=== PATIENT | female | born 2000 | race Caucasian/White ===

== ENCOUNTER → 2019-04-03 13:34 | Outpatient (BNVA) | payer MEDICAID, SELFPAY | PROVIDERS: Family Provider Nurse Practitioner Family; PCP Nurse Practitioner Family; Visit Provider Nurse Practitioner Family | DX: Z30.41 Encounter for surveillance of contraceptive pills (principal); J98.8 Other specified respiratory disorders | CPT/HCPCS: 81025 ==

== ENCOUNTER → 2019-04-18 11:35 | Outpatient (BNVA) | payer MEDICAID, SELFPAY | PROVIDERS: Family Provider Nurse Practitioner Family; PCP Nurse Practitioner Family; Visit Provider Nurse Practitioner Family | DX: R10.9 Unspecified abdominal pain (principal); R11.10 Vomiting, unspecified; J98.8 Other specified respiratory disorders; R10.813 Right lower quadrant abdominal tenderness; R10.84 Generalized abdominal pain; R11.2 Nausea with vomiting, unspecified; K21.9 Gastro-esophageal reflux disease without esophagitis | CPT/HCPCS: 81003 ==

== ENCOUNTER 2019-05-01 08:40 | Outpatient (CLI) | payer MEDICAID, SELFPAY ==
--- NOTE | 2019-05-01 08:45 | US_ITS ---
WS: [id number] ULTRASOUND ABDOMEN CLINICAL INFORMATION: looking to rule out appendicitis, cholecystitis.... COMPARISON: None. FINDINGS: No evidence of acute appendicitis. No noncompressible bowel in the right lower quadrant. Liver Size: Normal. Craniocaudal length: 15.0 cm. Echogenicity: Normal. Surface nodularity: None. Mass (size and location): None. Bile ducts Intrahepatic ducts: Normal. Common bile duct diameter: 4.5 mm. Gallbladder Normal. Gallstones: None. Gallbladder sludge: None. Gallbladder wall thickening: None. Pericholecystic fluid: None. Sonographic Chacon sign: Absent. Pancreas Normal as visualized. Spleen Splenomegaly: None. Craniocaudal length: 12.3 cm. Right kidney: Normal. Hydronephrosis: None. Size: 9.0 cm x 4.4 cm x 4.0 cm Left kidney: Normal. Hydronephrosis: None. Size: 9.5 cm x 4.5 cm x 4.6 cm. Abdominal aorta and IVC Visualized portions are normal. Ascites: None. US/US abdomen complete* [id number] IMPRESSION: Normal abdominal ultrasound. No evidence of acute appendicitis.
[2019-05-01 09:24] LABS: Basophils # 0.1 10^3/uL (0.0-0.1); Basophils % 0.5 %; Eosinophils # 0.2 10^3/uL (0.0-0.8); Eosinophils % 1.6 %; Hematocrit 43.1 % (37.0-47.0); Hemoglobin 12.8 g/dL (11.5-15.3); Lymphocytes # 1.9 10^3/uL (0.8-4.8); Lymphocytes % 18.9 %; Mean Corpuscular HGB Conc 29.7 g/dL (30.0-36.0); Mean Corpuscular Hemoglobin 23.2 pg (28.0-34.0); Mean Corpuscular Volume 78.1 fL (81-99); Mean Platelet Volume 9.7 fL (7.4-10.4); Monocytes # 0.5 10^3/uL (0.2-0.9); Monocytes % 4.9 %; Neutrophils # 7.4 10^3/uL (1.8-7.7); Neutrophils % 73.8 %; Nucleated Red Blood Cells % 0 %; Platelet Count 295 10^3/cmm (130-400); Red Blood Count 5.52 10^6/uL (4.1-5.3); Red Cell Distribution Width 15.3 % (12.1-15.1)
[2019-05-01 09:44] LABS: Alanine Aminotransferase 12 U/L (0-33); Albumin Level 3.6 g/dL (3.5-5.2); Alkaline Phosphatase 117 IU/L (35-105); Anion Gap 15.3 (5-19); Aspartate Amino Transferase 14 U/L (0-32); Blood Urea Nitrogen 14 mg/dL (6-20); Calcium 9.7 mg/dL (8.5-10.5); Carbon Dioxide 26 mmol/L (22-29); Chloride 99 mmol/L (98-107); Globulin 4.9 g/dL (1.3-4.6); Glomerular Filtration Rate 90.5 mL/min (90-130); Glucose 96 mg/dL (65-115); Potassium 4.3 mmol/L (3.5-5.1); Sodium 136 mmol/L (136-145); Total Bilirubin 0.4 mg/dL (0.15-1.2); Total Protein 8.5 g/dL (6.6-8.7)
== END 2019-05-01 08:41 | disposition home or self-care (01) ==
LOC: RAD 08:42
PROVIDERS: Family Provider Nurse Practitioner Family; PCP Nurse Practitioner Family; Visit Provider Nurse Practitioner Family
DX: R10.813 Right lower quadrant abdominal tenderness (principal); R11.10 Vomiting, unspecified
CPT/HCPCS: 76700; 80053; 85025

== ENCOUNTER 2019-09-10 14:09 | Emergency (ER) | payer MEDICAID, SELFPAY ==
[2019-09-10 14:27] VITALS: BP 126/88; PULSE 72; RESP 18; TEMP 36.8; O2SAT 97; BMI 39.9
--- NOTE | 2019-09-10 14:36 | ED_ITS ---
HPI - URI/Sore Throat General: Chief Complaint: Upper Respiratory Infection Stated Complaint: cough, dizzy, possibly Time Seen by Provider: 09/10/19 14:25 Source: patient Mode of arrival: ambulatory Limitations: no limitations History of Present Illness: HPI Narrative: 19-year-old female who states she has had a cough over the last 5 to 6 days. She states that it is nonproductive in nature. She states she is coughed so much she gets dizzy at times. She denies any fever. Patient states she also has had 2+ test yesterday. She denies any abdominal pain or vaginal bleeding. MD elicited complaint: cough Associated symptoms: Deny abdominal pain, chills, chest pain, diarrhea, fever(s), headache(s), nausea or vomiting Review of Systems Const: Denies: fever(s), chills, body aches or change in appetite Eyes: Denies: blurry vision or eye discomfort ENMT: Denies: throat pain or dental pain Card: Denies: chest pain Resp: Reports: non-productive cough GI: Denies: abdominal pain, nausea, vomiting or diarrhea : Denies: dysuria Musc: Denies: neck pain or back pain Skin/Breast: Denies: rash Neuro: Denies: headache(s) Psych: Denies: depression Dario/Lymph: Denies: easy bruising All/Imm: Denies: urticaria PFSH ED PFSH: Social History Smoking and tobacco status: former smoker Quit status (tobacco): has quit using tobacco Second hand smoke exposure: No Smoking risk assessment/counseling performed?: No Alcohol intake: never Substance/Drug Use: never Lives independently: Yes Housing: House Marital status: Single History of recent travel: No Female Reproductive History: Date of last menstrual period: 08/07/19 Physical Exam Const: COMMON NORMALS: no acute distress, patient oriented x3 and healthy appearing HENMT: COMMON NORMALS: normocephalic and atraumatic HEAD & SCALP: normocephalic and atraumatic Eye: COMMON NORMALS: Equal, round and reactive pupils present and EOMs intact bilaterally PUPIL: Yes Equal, round and reactive pupils present Neck/C-Spine: COMMON NORMALS: full ROM and supple Chest: COMMONS NORMALS: normal inspection of the chest and normal palpation of entire chest wall Resp: COMMON NORMALS: normal respiratory effort, No retractions, No use of accessory muscles and clear to auscultation bilaterally AUSCULTATION: clear to auscultation bilaterally Cardio: COMMON NORMALS: regular rate, regular rhythm and No murmurs present (Cardio) RATE: regular rate RHYTHM: regular rhythm GI: COMMON NORMALS: Normal to inspection, nondistended, normoactive bowel sounds present, Soft to palpation, non-tender and no masses PALPATION: Yes Soft to palpation Extremity: COMMON NORMALS: normal to inspection and full ROM Neuro: COMMON NORMALS: patient oriented x3, moves all extremities and no focal motor deficits Psych: COMMON NORMALS: mental status grossly normal, Normal thought process present and cooperative THOUGHT PROCESS: Normal thought process present Skin: COMMON NORMALS: no rashes or lesions noted and no wounds GENERAL SKIN EXAM: no rashes or lesions noted Course Vital Signs: Vital signs: Vital Signs Temperature 98.2 F 09/10/19 14:27 Pulse Rate 72 09/10/19 14:27 Respiratory Rate 18 09/10/19 14:27 Blood Pressure 126/88 09/10/19 14:27 Pulse Oximetry 97 09/10/19 14:27 MDM - URI/Sore Throat MDM Narrative: Medical decision making narrative: Patient presents here with cough congestion likely bronchitis. Patient is also . She has no related complaints here. Patient's blood pressure and pulse is normal. She has had no bleeding. She is to follow-up with OB in 3 to 5 days and return if worsening. Will place on Keflex. Lab Data: Labs: Lab Results 09/10/19 Range/Units 14:41 HCG, Qual Positive H (Negative) Imaging Data^: CXR: Attestation: I personally reviewed and interpreted this imaging study as follows: My impression: no acute abnormality Discharge Plan Discharge Patient Disposition: Home, Self-Care Clinical Impression: Upper respiratory infection Qualifiers: URI type: unspecified URI Qualified Code(s): J06.9 - Acute upper respiratory infection, unspecified Condition: Stable Prescriptions: New Keflex 500 mg capsule 500 mg PO Q6H 7 Days Qty: 28 RF: 0 No Action famotidine 40 mg tablet 40 mg PO BID 30 Days Qty: 60 RF: 2 promethazine-DM 6.25-15 mg/5 mL syrup 5 - 10 ml PO Q6H PRN (Reason: cough) Qty: 240 RF: 0 albuterol sulfate [ProAir HFA] 90 mcg/actuation HFA aerosol inhaler 2 puff INHALATION Q6H PRN (Reason: shortness of breath or wheezing) Qty: 1 RF: 0 norgestimate-ethinyl estradiol [Tri-Sprintec (28)] 0.18/0.215/0.25 mg-35 mcg (28) tablet 1 tab PO QDAY 30 Days Qty: 30 RF: 11 Discharge Orders: Discharge Order (Routine); Ordered 09/10/19 Ordered By: Stiven Grier Referrals: Raz Jon MD [Physician] - 1-3 days Discharge Diet: Advance as tolerated Discharge Activity: Resume usual activity Patient Instructions: (ED), Upper Respiratory Infection (ED) Coding Level of Care Code ED Camouflage Assembler for Chg Fwd Exam Comprehensive
--- NOTE | 2019-09-10 14:44 | XRR_ITS ---
PROCEDURE INFORMATION: Exam: XR Chest, 1 View Exam date and time: 09/10/2019 2:45 PM Age: 19 years old Clinical indication: Cough TECHNIQUE: Imaging protocol: XR of the chest Views: 1 view. COMPARISON: No relevant prior studies available. FINDINGS: Lungs: Unremarkable. No consolidation. Pleural space: Unremarkable. No pleural effusion. No pneumothorax. Heart/Mediastinum: Unremarkable. No cardiomegaly. Bones/joints: No acute findings. XR/XR chest 1V portable [id number] IMPRESSION: No acute findings.
[2019-09-10 15:01] LABS: HCG Qualitative Urine. Positive (Negative)
[2019-09-10 15:39] VITALS: BP 121/83; PULSE 70; O2SAT 97
--- NOTE | 2019-09-12 10:17 | DCPLANNER ---
costing manager had message to schedule a follow up appointment for patient with [facility]. costing manager called the [facility] clinic, spoke with Khalida, gave clinic patients information. costing manager was told that patients information would be printed and reviewed. Clinic will call patient with appointment information.
== END 2019-09-10 15:41 | disposition home or self-care (01) ==
PROVIDERS: Emergency Provider Emergency Medicine
DX: O99.511 Diseases of the respiratory system complicating pregnancy, first trimester (principal); Z3A.00 Weeks of gestation of pregnancy not specified; Z87.891 Personal history of nicotine dependence
CPT/HCPCS: 12345; 71045; 81025; 99281; 99283

== ENCOUNTER 2020-03-28 22:04 | Outpatient (CLI) | payer MEDICAID, SELFPAY ==
[2020-03-28 22:54] VITALS: TEMP 37.4
[2020-03-28 22:55] VITALS: BP 120/74; PULSE 106; BMI 41.9
== END 2020-03-28 23:21 | disposition home or self-care (01) ==
LOC: OPOB 22:06 → OBGYN 22:21 → OPOB 22:23 → OBGYN 22:24
PROVIDERS: Visit Provider Family Medicine
DX: O26.899 Other specified pregnancy related conditions, unspecified trimester (principal); Z3A.00 Weeks of gestation of pregnancy not specified; R10.9 Unspecified abdominal pain
CPT/HCPCS: 99211

== ENCOUNTER 2020-05-14 12:43 | Inpatient (IN) | payer MEDICAID, SELFPAY ==
[2020-05-14] VITALS (69 sets, daily range): BP systolic 100–148; BP diastolic 54–81; PULSE 81–126; RESP 16–18; TEMP 36.3–36.8; O2SAT 93–100; BMI 44.2
[2020-05-14 10:57] LABS: Nitrazine Paper, PH Negative
[2020-05-14 13:41] LABS: Basophils # 0.1 10^3/uL (0.0-0.1); Basophils % 0.3 %; Eosinophils # 0.1 10^3/uL (0.0-0.8); Eosinophils % 0.4 %; Hematocrit 35.4 % (37.0-47.0); Hemoglobin 10.4 g/dL (11.5-15.3); Lymphocytes # 2.5 10^3/uL (0.8-4.8); Lymphocytes % 14.3 %; Mean Corpuscular HGB Conc 29.4 g/dL (30.0-36.0); Mean Corpuscular Hemoglobin 21.2 pg (28.0-34.0); Mean Corpuscular Volume 72.2 fL (81-99); Mean Platelet Volume 9.9 fL (7.4-10.4); Monocytes # 0.8 10^3/uL (0.2-0.9); Monocytes % 4.4 %; Neutrophils # 13.77 10^3/uL (1.8-7.7); Nucleated Red Blood Cells % 0 %; Platelet Count 328 10^3/cmm (130-400); Red Cell Distribution Width 15.9 % (12.1-15.1); White Blood Count 17.2 10^3/uL (4.0-10.0)
[2020-05-14] MEDS: lactated ringers 1,000 ML 999 ML IV ×3 (15:49→22:50)
--- NOTE | 2020-05-14 17:09 | P.ANESASSM_ITS ---
Pre-Anesthetic Assessment Pre-Anesthetic Assessment: Height/Weight: Height 1.65 m Weight 120.656 kg Temp Pulse Resp BP Pulse Ox 97.3 F L 121 H 18 126/77 100 05/14/20 10:37 05/14/20 17:06 05/14/20 12:47 05/14/20 17:06 05/14/20 17:03 Preop Diagnosis: Labor pain Proposed Procedure: SMITHA Was Beta Aurora taken within 24 hours: N/A Social: Social History: No alcohol and No tobacco Exam: Pre-Anes Outpt Exam: alert, clear to auscultation bilaterally and regular rate & rhythm Airway: Submandibular: WNL Cervical ROM: WNL MP: 2 Dentition: Full History/ROS: No significant history except as noted and No significant complaints Pulmonary: Pulmonary: None reported CV/HEM: CV/HEM: None reported : : None reported Hepatic: Hepatic: None reported GI: GI: None reported Metabolic: Metabolic: None reported Musc/skel: Musc/skel: None reported Neuropsych: Neuropsych: None reported Anesthetic Plan: ASA status: 2 Anesthesia: Anesthesia Evaluation and Regional (specify below) (Labor epidural) Risk of > 500 ml blood loss (7ml/kg in children): No Meds/Allergies Current Medications: Current Medications Generic Name Dose Route Start Last Admin Trade Name Freq PRN Reason Stop Dose Admin Lactated Ringer's 1,000 mls @ 999 m ls/hr 05/14/20 15:35 05/14/20 16:51 Lactated Ringers IV 999 mls/hr .Q1H1M PRN Administration See label comment s PFSH Anesthesia PFSH: Social History Smoking and tobacco status: former smoker Quit status (tobacco): has quit using tobacco Second hand smoke exposure: No Smoking risk assessment/counseling performed?: No Alcohol intake: never Lives independently: Yes Housing: House Marital status: Single History of recent travel: No Female Reproductive History: Date of last menstrual period: 08/07/19 Gra shelby: 2 Data Anesthesia CBC & Chem 7: 05/14/20 13:00 Other Labs: Laboratory Results - last 48 hr 05/14/20 13:00 WBC 17.2 H RBC 4.90 Hgb 10.4 L Hct 35.4 L MCV 72.2 L MCH 21.2 L MCHC 29.4 L RDW 15.9 H Plt Count 328 MPV 9.9 Neut % (Auto) 80.0 Lymph % (Auto) 14.3 [place] % (Auto) 4.4 Eos % (Auto) 0.4 Baso % (Auto) 0.3 Neut # (Auto) 13.77 H Lymph # (Auto) 2.5 [place] # (Auto) 0.8 Eos # (Auto) 0.1 Baso # (Auto) 0.1 Nucleated RBC % (auto) 0 Nucleated RBCs # 0.0 Cardiac Studies: No Data to Display
--- NOTE | 2020-05-14 17:11 | P.ANES_ITS ---
Anesthesia Procedures Procedure/Date: 05/14/20 Epidural: Time Out Performed: Yes Consents Signed: Procedure Consent Consent: requested by attending/covering physician and from patient Lumbar Level: L3-L4 Epidural position: sitting Epidural procedure: sterile prep of area, 1% lidocaine to numb the area, 18 g needle, neg for paresthesia, test d ose given (5cc), 1.5% xylocaine 1:200k epi, 0.2% Ropivacaine bolus ml (5cc and Fentanyl 100 mcg), no systemic response, sterile dressing applied, L.U.D. no apparent complications and 0.2% Ropiavacaine @ mls/hr (13cc/hour)
[2020-05-14] MEDS: dextrose 5%-lactated ringers 1,000 ML 125 ML IV (18:37)
[2020-05-14] MEDS: ondansetron 2 mg/ML SDV 2 mL 4 MG IVP (19:53)
[2020-05-15] VITALS (19 sets, daily range): BP systolic 95–140; BP diastolic 45–69; PULSE 84–120; RESP 16; TEMP 36.1
[2020-05-15] MEDS: lactated ringers 1,000 ML 999 ML IV
[2020-05-15] MEDS: lidocaine 2% INJ 20 mL INJECTION (00:50)
[2020-05-15] MEDS: oxytocin 30 UNIT/500 ML BAG 600 UNIT IV (00:50)
--- NOTE | 2020-05-15 01:25 | P.PCNOB_ITS ---
Delivery Note: Date of delivery: May 15, 2020 this 20-year-old 2 now para 2 female with an EDC of 05/14/2019 had onset of labor early yesterday morning and arrived [facility] with contractions. She was allowed to labor through the day getting epidural yesterday evening. She underwent artificial rupture membranes around 8:40 PM with clear to slightly meconium stained fluid obtained. At that time she was 6 cm dilated. She dilated slowly throughout the evening to complete cervical dilatation but the baby was still pretty high so allowed her to labor down. heart tones were very reassuring. This physician was called and the patient with the baby at approximately +2 station. Upon arrival mom began pushing and slowly brought the baby on down and we delivered by spontaneous vaginal livery healthy, viable female infant at 00 45. Upon delivery the head the mouth and nose were sucti oned at the perineum followed by delivering of the left shoulder anteriorly in the right posterior shoulder. There was no nuchal cord. The was then suctioned again prior to placing the baby on the mother's abdomen. After approximately 1 minute the umbilical cord was clamped and cut by the maternal grandmother. The infant cried well at with Apgars of 8 and 9 at 1 and 5 minutes respectively. weighed 8 pounds 2 ounces. There were no complications. There was a midline second-degree episiotomy with layered surgical closure. Pre-Delivery Course: This patient was followed throughout her by this physician. Maternal blood type was O+ with antibody screen negative. Hepatitis B, hepatitis C, RPR and HIV were negative. Rubella was immune and group B strep was negative as was Covid. Delivery: Spontaneous vaginal delivery. Post-Delivery Status: Patient is doing well at this time and will be followed for routine postdelivery care. A&P Assessment and plan (1) Normal spontaneous vaginal delivery: Presently patient is doing well and will be followed for routine postdelivery care. We will adjust orders as necessary. Status: Acute Coding Level of Care Code Acute Engineering Test Specialist for Teresa Fwsarai Diagnoses Normal spontaneous vaginal delivery O80
[2020-05-15] MEDS: benzocaine-menthol 78 gm Canister 1 SPRAY TOPICAL (06:15)
[2020-05-15] MEDS: lanolin oint 7 gm 1 APPLIC TOPICAL (06:15)
[2020-05-15] MEDS: docusate sodium 100 mg Capsule PO ×2 (08:18→17:16)
[2020-05-15] MEDS: ibuprofen 800 mg tablet PO ×3 (08:18→20:55)
[2020-05-15] MEDS: prenatal vitamin Capsule 1 CAP PO (08:19)
--- NOTE | 2020-05-15 08:24 | PC.NURSE ---
note Baby had fed formula about 06:30. I saw pt about 0715 and baby was asleep. Mom said she still wanted to try . She has since changed her mind and told her nurse she is just going to stay with bottle feeding and does not want to try the any more.
[2020-05-15 15:13] LABS: Hematocrit 28.6 % (37.0-47.0); Hemoglobin 8.3 g/dL (11.5-15.3); Mean Corpuscular Hemoglobin 21.3 pg (28.0-34.0); Mean Corpuscular Volume 73.3 fL (81-99); Mean Platelet Volume 9.5 fL (7.4-10.4); Platelet Count 248 10^3/cmm (130-400); Red Cell Distribution Width 15.9 % (12.1-15.1); White Blood Count 14.7 10^3/uL (4.0-10.0)
[2020-05-16 04:58] VITALS: BP 111/68; PULSE 86
[2020-05-16 07:30] VITALS: RESP 18; TEMP 36.2
[2020-05-16] MEDS: prenatal vitamin Capsule 1 CAP PO (07:57)
[2020-05-16] MEDS: ibuprofen 800 mg tablet PO (07:57)
[2020-05-16] MEDS: docusate sodium 100 mg Capsule PO (07:58)
[2020-05-16 08:00] VITALS: BP 127/58; PULSE 86
--- NOTE | 2020-05-16 09:38 | PM.OBGYDC ---
Discharge Providers BLACK TOP RAKER Date of Admission: 05/14/20 12:43 Date of Discharge: 05/16/20 Attending Provider at Admission: Emmanuel Diaz MD Attending Provider at Discharge: Emmanuel Diaz MD Primary Care Provider: Emmanuel Diaz MD Diagnoses at Discharge Discharge Diagnosis (1) Normal spontaneous vaginal delivery: Status: Acute Reason for Visit Reason for Visit: leaking fluid Hospital Course Hospital Course Patient arrived at [facility] in active labor and delivered by spontaneous vaginal delivery healthy, viable female infant. She has done very well since delivery. She is ambulating well and tolerating a regular diet. Follow-up hemoglobin and hematocrit were mildly low but otherwise normal. She is doing well and is felt to be stable for discharge. Information Peripartum Data: Delivery Method: Vaginal Physical Exam Const: COMMON NORMALS: no acute distress, healthy appearing and well nourished GENERAL APPEARANCE: cooperative and comfortable HENMT: MOUTH: Normal oral and palatal mucosa present Resp: COMMON NORMALS: normal respiratory effort, No retractions, No use of accessory muscles and clear to auscultation bilaterally AUSCULTATION: clear to auscultation bilaterally Cardio: COMMON NORMALS: regular rate and No murmurs present (Cardio) RATE: regular rate GI: COMMON NORMALS: Normal to inspection, nondistended, normoactive bowel sounds present, Soft to palpation and non-tender (Fundus is firm and well below the umbilicus.) PALPATION: Yes Soft to palpation : COMMON NORMALS: Yes no CVA tenderness BLADDER/KIDNEY EXAM: Yes no CVA tenderness Back/Pelvis: COMMON NORMALS: no CVA tenderness and no thoracic nor lumbar tenderness Extremity: COMMON NORMALS: capillary refill normal and no pedal edema Neuro: COMMON NORMALS: no focal motor deficits and no sensory deficits noted Psych: COMMON NORMALS: mental status grossly normal Urinary Catheter Management^: Cooper: Cath Placed During This Visit: yes Reason for Continuing Indwelling Catheter: Acute Urinary Retention or Obstruction Urinary Catheter Date of Insertion: 05/14/20 Urinary Catheter Time of Insertion: 17:35 Discharge Data Data Completed and Pending: Labs from last 24 hours 05/15/20 14:40 WBC 14.7 H RBC 3.90 L Hgb 8.3 L Hct 28.6 L MCV 73.3 L MCH 21.3 L MCHC 29.0 L RDW 15.9 H Plt Count 248 MPV 9.5 Vitals: Last Vital Signs Temp 97.2 F L 05/16/20 07:30 Pulse 86 05/16/20 08:00 Resp 18 05/16/20 07:30 BP 127/58 05/16/20 08:00 Pulse Ox 100 05/14/20 23:50 Discharge Plan Discharge Patient Disposition: Home Condition: Stable Prescriptions: New docusate sodium [DOK] 100 mg Capsule 100 mg PO BID Qty: 60 RF: 2 ibuprofen 800 mg Tablet 800 mg PO TID Qty: 90 RF: 2 Continued Vitamin 27 mg iron- 800 mcg Tablet 1 tab PO DAILY RF: 0 Discharge Orders: Discharge Order (Routine); Ordered 05/16/20 Ordered By: Emmanuel Diaz Referrals: Emmanuel Diaz MD [Primary Care Provider] - 6 Weeks Discharge Diet: Usual diet Discharge Activity: Resume usual activity Patient Instructions: Perineal Care (DC), Breast Care for the Non-breast Feeding Woman (DC), Pre-eclampsia and Eclampsia (DC), Bleeding (DC), OB Discharge Report, OB Food/Drug Interaction Guide, OB Home Care, OB Proud Parent Packet, OB Vaginal Deliveries, Depression Discharge Attestations BLACK TOP RAKER Time Spent in Discharge Care*: less than 30 min Specific Discharge Activities: Specific discharge activities: educating patient, documenting/other paperwork and evaluating patient/reviewing data Coding Level of Care Code Acute Hands Parter for Teresa Fwsarai Diagnoses Normal spontaneous vaginal delivery O80
[2020-05-16 10:48] VITALS: BP 120/72; PULSE 93
[2020-05-16 10:50] VITALS: TEMP 36.2
[2020-05-16 11:24] VITALS: BP 120/72; PULSE 93; RESP 18; TEMP 36.2
== END 2020-05-16 11:00 | disposition home or self-care (01) | DRG 807 ==
LOC: OPOB 12:44 → OBGYN 12:44
PROVIDERS: Admitting Provider Family Medicine; PCP Family Medicine; Visit Provider Family Medicine
DX: O77.0 Labor and delivery complicated by meconium in amniotic fluid (principal); Z37.0 Single live birth; Z3A.39 39 weeks gestation of pregnancy
CPT/HCPCS: 12345; 36415; 51702; 59409; 83986; 85025; 85027; J2405; J2795; J3010

== ENCOUNTER → 2020-09-05 11:24 | Outpatient (BNVA) | payer MEDICAID, SELFPAY | PROVIDERS: PCP Family Medicine; Visit Provider Nurse Practitioner Family | DX: J06.9 Acute upper respiratory infection, unspecified (principal); Z20.822 Contact with and (suspected) exposure to COVID-19 | CPT/HCPCS: 87635 ==

== ENCOUNTER → 2021-01-15 11:38 | Outpatient (BNVA) | payer MEDICAID, SELFPAY | PROVIDERS: PCP Family Medicine; Visit Provider Nurse Practitioner Family | DX: M79.641 Pain in right hand (principal); M79.642 Pain in left hand; M25.531 Pain in right wrist; M25.532 Pain in left wrist | CPT/HCPCS: 80053; 84443; 85025; 85651; 86140; 86431 ==

== ENCOUNTER → 2021-01-22 11:14 | Outpatient (BNVA) | payer MEDICAID, SELFPAY | PROVIDERS: PCP Family Medicine; Visit Provider Nurse Practitioner Family | DX: D64.9 Anemia, unspecified (principal) | CPT/HCPCS: 83550 ==

== ENCOUNTER → 2021-02-05 10:50 | Outpatient (BNVA) | payer MEDICAID, SELFPAY | PROVIDERS: PCP Nurse Practitioner Family; Visit Provider Internal Medicine | DX: M79.643 Pain in unspecified hand (principal); R79.82 Elevated C-reactive protein (CRP); M25.50 Pain in unspecified joint; Z11.59 Encounter for screening for other viral diseases; Z87.891 Personal history of nicotine dependence | CPT/HCPCS: 99204 ==

== ENCOUNTER 2021-02-05 12:04 | Outpatient (CLI) | payer MEDICAID, SELFPAY ==
--- NOTE | 2021-02-05 12:21 | XR_ITS ---
WS: [id number] Left foot, AP and lateral views, 02/05/2021 Clinical Data: M25.50 - Pain in unspecified joint Comparison: None. Findings: No fractures or dislocations are seen. No bone destruction or erosion is noted. The joint spaces and soft tissues are normal. No periarticular demineralization or calcifications are seen. XR/XR foot LT 2V [id number] Impression: Negative left foot.
--- NOTE | 2021-02-05 12:21 | XR_ITS ---
WS: [id number] Lateral views of cervical spine in the flexion, extension and neutral positions. 02/05/2021 Clinical Data: M25.50 - Pain in unspecified joint Comparison: None. Findings: No compression fractures are seen. The disc heights are normal. There is no prevertebral soft tissue swelling. No limitation of motion on flexion or extension is noted. There is no subluxation. XR/XR cervical spine fl/ex [id number] Impression: Negative lateral view of the lumbar spine.
--- NOTE | 2021-02-05 12:21 | XR_ITS ---
WS: [email or web address] Right hand, 2 views, 02/05/2021 Clinical Data: M25.50 - Pain in unspecified joint Comparison: None. Findings: No fractures or dislocations are seen. The soft tissues are unremarkable. The joint space s are normal No periarticular demineralization or calcifications are seen. XR/XR hand RT 2V [id number] Impression: Negative right hand.
--- NOTE | 2021-02-05 12:21 | XR_ITS ---
WS: [email or web address] Left hand, 2 views, 02/05/2021 Clinical Data: M25.50 - Pain in unspecified joint Comparison: None. Findings: No fractures or dislocations are seen. The soft tissues are unremarkable. The joint spaces are normal No periarticular demineralization or calcifications are seen. XR/XR hand LT 2V [id number] Impression: Negative left hand.
--- NOTE | 2021-02-05 12:21 | XR_ITS ---
WS: [email or web address] Lumbar spine, 3 views, 02/05/2021 Clinical Data: M25.50 - Pain in unspecified joint Comparison: None. Findings: No compression fractures or subluxation is seen. No disc space narrowing is seen. The transverse proc esses and SI joints are normal. XR/XR lumbar spine 2-3V* [id number] Impression: Negative lumbar spine.
--- NOTE | 2021-02-05 12:21 | XR_ITS ---
WS: [email or web address] Right foot, AP and lateral views, 02/05/2021 Clinical Data: M25.50 - Pain in unspecified joint Comparison: None. Findings: No fractures or dislocations are seen. No bone destruction or erosion is noted. The joint spaces and soft tissues are normal. No periarticular demineralization or calcifications are seen. XR/XR foot RT 2V [id number] Impression: Negative right foot.
[2021-02-05 14:20] LABS: Iron 138 ug/dL (37-145)
[2021-02-05 14:36] LABS: Creatine Phosphokinase 68 U/L (26-192); Magnesium 1.9 mg/dL (1.7-2.3); Thyroid Stimulating Hormone 2.31 uIU/mL (0.27-4.20); Vitamin B12 418 pg/mL (232-1245)
[2021-02-05 14:38] LABS: Hepatitis B Core AB, Total Non-Reactive (Nonreactive); Hepatitis B Surface Antigen Non-Reactive (Nonreactive); Hepatitis C Virus Antibody Non-Reactive (Nonreactive)
[2021-02-06 13:27] LABS: Cyclic Citrullinated Peptide <16 UNITS
== END 2021-02-05 12:05 | disposition home or self-care (01) ==
PROVIDERS: PCP Nurse Practitioner Family; Visit Provider Internal Medicine
DX: M25.50 Pain in unspecified joint (principal); D64.9 Anemia, unspecified; Z11.59 Encounter for screening for other viral diseases
CPT/HCPCS: 72040; 72100; 73120; 73620; 82550; 82607; 83540; 83735; 84443; 86200; 86704; 86803; 87340

== ENCOUNTER → 2021-02-18 13:37 | Outpatient (BNVA) | payer MEDICAID, SELFPAY | PROVIDERS: PCP Nurse Practitioner Family; Visit Provider Internal Medicine | DX: M79.643 Pain in unspecified hand (principal); R79.82 Elevated C-reactive protein (CRP); M25.50 Pain in unspecified joint; M54.9 Dorsalgia, unspecified; Z87.891 Personal history of nicotine dependence | CPT/HCPCS: 99214 ==

== ENCOUNTER → 2021-03-06 14:09 | Outpatient (BNVA) | payer MEDICAID, SELFPAY | PROVIDERS: PCP Nurse Practitioner Family; Visit Provider Nurse Practitioner Family | DX: J02.9 Acute pharyngitis, unspecified (principal) | CPT/HCPCS: 87880 ==

== ENCOUNTER → 2021-03-10 08:30 | Outpatient (BNVA) | payer MEDICAID, SELFPAY | PROVIDERS: PCP Nurse Practitioner Family; Referring Provider Internal Medicine; Visit Provider Anesthesiology Pain Medicine | DX: Z02.89 Encounter for other administrative examinations (principal); G89.29 Other chronic pain; M54.50 Low back pain, unspecified | CPT/HCPCS: 99204 ==

== ENCOUNTER 2021-03-19 06:00 | Outpatient (RCR) | payer MEDICAID, SELFPAY | END 2021-04-07 23:59 | disposition home or self-care (01) | LOC: APT 06:00 | PROVIDERS: PCP Nurse Practitioner Family; Referring Provider Anesthesiology Pain Medicine; Visit Provider Anesthesiology Pain Medicine | DX: M54.50 Low back pain, unspecified (principal); G89.29 Other chronic pain | CPT/HCPCS: 97110; 97140; 97162 ==

== ENCOUNTER → 2021-04-15 10:08 | Outpatient (BNVA) | payer MEDICAID, SELFPAY | PROVIDERS: PCP Nurse Practitioner Family; Visit Provider Nurse Practitioner | DX: E04.9 Nontoxic goiter, unspecified (principal); Z12.4 Encounter for screening for malignant neoplasm of cervix; Z11.3 Encounter for screening for infections with a predominantly sexual mode of transmission | CPT/HCPCS: 86800; 87491; 87591; 88175 ==

== ENCOUNTER 2021-04-23 06:00 | Outpatient (RCR) | payer MEDICAID, SELFPAY | END 2021-05-05 23:59 | disposition home or self-care (01) | LOC: APT 06:00 | PROVIDERS: PCP Nurse Practitioner Family; Referring Provider Anesthesiology Pain Medicine; Visit Provider Anesthesiology Pain Medicine | DX: M54.50 Low back pain, unspecified (principal); G89.29 Other chronic pain | CPT/HCPCS: 97110 ==

== ENCOUNTER → 2021-06-06 10:16 | Outpatient (BNVA) | payer MEDICAID, SELFPAY | PROVIDERS: PCP Nurse Practitioner Family; Visit Provider Internal Medicine | DX: M25.50 Pain in unspecified joint (principal); R79.82 Elevated C-reactive protein (CRP); Z79.899 Other long term (current) drug therapy; M79.643 Pain in unspecified hand | CPT/HCPCS: 80053; 85025; 85651; 86140 ==

== ENCOUNTER → 2021-06-09 11:49 | Outpatient (BNVA) | payer MEDICAID, SELFPAY | PROVIDERS: PCP Nurse Practitioner Family; Visit Provider Nurse Practitioner Family | DX: R10.9 Unspecified abdominal pain (principal); R11.0 Nausea | CPT/HCPCS: 81000; 81025 ==

== ENCOUNTER → 2021-06-10 13:33 | Outpatient (BNVA) | payer MEDICAID, SELFPAY | PROVIDERS: PCP Nurse Practitioner Family; Visit Provider Internal Medicine | DX: M79.643 Pain in unspecified hand (principal); R79.82 Elevated C-reactive protein (CRP); Z79.899 Other long term (current) drug therapy; Z87.891 Personal history of nicotine dependence | CPT/HCPCS: 99214 ==

== ENCOUNTER 2021-06-10 14:52 | Outpatient (CLI) | payer MEDICAID, SELFPAY ==
--- NOTE | 2021-06-10 15:15 | XR_ITS ---
WS: [email or web address] XR abdomen 1V* [id number] REASON FOR EXAM: R10.9 - Unspecified abdominal pain FINDINGS: No free air or retroperitoneal air. Unremarkable bowel gas pattern. No urinary tract calculi. No mass identified. XR/XR abdomen 1V* [id number] IMPRESSION: No acute abnormality.
[2021-06-10 15:25] LABS: Basophils # 0.1 10^3/uL (0.0-0.1); Basophils % 0.4 %; Eosinophils # 0.2 10^3/uL (0.0-0.8); Eosinophils % 1.4 %; Hemoglobin 13.2 g/dL (11.5-15.3); Lymphocytes # 3.2 10^3/uL (0.8-4.8); Lymphocytes % 25.3 %; Mean Corpuscular HGB Conc 30.7 g/dL (30.0-36.0); Mean Corpuscular Hemoglobin 23.9 pg (28.0-34.0); Mean Corpuscular Volume 77.9 fl (81-99); Mean Platelet Volume 9.9 fL (7.4-10.4); Monocytes # 0.6 10^3/uL (0.2-0.9); Monocytes % 4.7 %; Neutrophils # 8.46 10^3/uL (1.8-7.7); Neutrophils % 67.9 %; Nucleated Red Blood Cells % 0 %; Platelet Count 307 10^3/cmm (130-400); Red Blood Count 5.52 10^6/uL (4.1-5.3); Red Cell Distribution Width 14.3 % (12.1-15.1); White Blood Count 12.5 10^3/uL (4.0-10.0)
[2021-06-10 15:32] LABS: Erythrocyte Sedimentation Rate 43 mm/hr (0-15)
[2021-06-10 15:36] LABS: Alanine Aminotransferase 14 U/L (0-33); Albumin Level 3.9 g/dL (3.5-5.2); Alkaline Phosphatase 134 IU/L (35-105); Aspartate Amino Transferase 11 U/L (0-32); Blood Urea Nitrogen 9 mg/dL (6-20); C Reactive Protein 21.9 mg/L (0.0-4.9); Calcium 9.4 mg/dL (8.5-10.5); Carbon Dioxide 26 mmol/L (22-29); Chloride 100 mmol/L (98-107); Globulin 4.2 g/dL (1.3-4.6); Glomerular Filtration Rate 103.7 mL/min (90-130); Glucose 83 mg/dL (65-115); Osmolality Calculated 278 mOsm/kg (285-295); Sodium 135 mmol/L (136-145); Total Bilirubin 0.2 mg/dL (0.15-1.2); Total Protein 8.1 g/dL (6.6-8.7)
[2021-06-10 15:50] LABS: Alanine Aminotransferase 15 U/L (0-33); Alkaline Phosphatase 143 IU/L (35-105); Aspartate Amino Transferase 12 U/L (0-32); Blood Urea Nitrogen 9 mg/dL (6-20); Calcium 9.4 mg/dL (8.5-10.5); Carbon Dioxide 26 mmol/L (22-29); Chloride 101 mmol/L (98-107); Globulin 4.2 g/dL (1.3-4.6); Glomerular Filtration Rate 103.7 mL/min (90-130); Glucose 90 mg/dL (65-115); Osmolality Calculated 282 mOsm/kg (285-295); Sodium 137 mmol/L (136-145); Total Bilirubin 0.3 mg/dL (0.15-1.2); Total Protein 8.2 g/dL (6.6-8.7)
[2021-06-11 12:21] LABS: THYROID PEROXIDASE ANTIBODIES 6 IU/mL (<9)
[2021-06-11 12:58] LABS: CENTROMERE B ANTIBODY <1.0 NEG AI (<1.0 NEG); JO-1 ANTIBODY <1.0 NEG AI (<1.0 NEG); RNP ANTIBODY <1.0 NEG AI (<1.0 NEG); SCL-70 ANTIBODY <1.0 NEG AI (<1.0 NEG); SJOGREN'S ANTIBODY (SS-A) <1.0 NEG AI (<1.0 NEG); SM ANTIBODY <1.0 NEG AI (<1.0 NEG); SS-B <1.0 NEG AI (<1.0 NEG)
[2021-06-11 13:42] LABS: COMPLEMENT, TOTAL (CH50) >60 U/mL (31-60)
[2021-06-11 14:44] LABS: COMPLEMENT COMPONENT C3C 191 mg/dL (83-193); COMPLEMENT COMPONENT C4C 48 mg/dL (15-57)
[2021-06-11 16:23] LABS: ANA SCREEN, IFA NEGATIVE (NEGATIVE)
[2021-06-14 15:43] LABS: DNA AB (DS) CRITHIDIA,IFA NEGATIVE (NEGATIVE)
== END 2021-06-10 14:53 | disposition home or self-care (01) ==
LOC: LAB 14:55
PROVIDERS: Internal Medicine; PCP Nurse Practitioner Family; Visit Provider Nurse Practitioner Family
DX: R10.9 Unspecified abdominal pain (principal); M25.50 Pain in unspecified joint; M79.643 Pain in unspecified hand; R79.82 Elevated C-reactive protein (CRP); Z79.899 Other long term (current) drug therapy
CPT/HCPCS: 36415; 74018; 80053; 83516; 84702; 85025; 85651; 86140; 86160; 86162; 86235; 86255; 86376

== ENCOUNTER → 2021-07-17 10:30 | Outpatient (BNVA) | payer MEDICAID, SELFPAY | PROVIDERS: PCP Nurse Practitioner Family; Visit Provider Nurse Practitioner | DX: F41.1 Generalized anxiety disorder (principal); Z30.41 Encounter for surveillance of contraceptive pills; E04.9 Nontoxic goiter, unspecified | CPT/HCPCS: 84439; 84443; 84481 ==

== ENCOUNTER 2021-10-22 10:18 | Outpatient (CLI) | payer MEDICAID, SELFPAY ==
--- NOTE | 2021-10-22 10:47 | US_ITS ---
WS: [email or web address] Bilateral breast ultrasound, 10/22/2021 Clinical Data: STRONG FAM HX OF BREAST CA Comparison: None. Findings: Bilateral breast ultrasound was performed in all four quadrants of both breasts. Only normal breast t issue could be seen. There were no cysts or masses. US/US breast BI complete [id number] Impression: 1. Negative bilateral breast ultrasound. 2. Recommend clinical follow-up. BIRADS: 1-Negative FOLLOW UP: See Report
== END 2021-10-22 10:19 | disposition home or self-care (01) ==
PROVIDERS: PCP Nurse Practitioner Family; Visit Provider Nurse Practitioner
DX: Z12.31 Encounter for screening mammogram for malignant neoplasm of breast (principal); Z80.3 Family history of malignant neoplasm of breast
CPT/HCPCS: 76641

== ENCOUNTER → 2021-12-17 09:50 | Outpatient (BNVA) | payer MEDICAID, SELFPAY | PROVIDERS: PCP Nurse Practitioner Family; Visit Provider Nurse Practitioner Women's Health | DX: N92.6 Irregular menstruation, unspecified (principal); R30.0 Dysuria; R35.0 Frequency of micturition; F41.1 Generalized anxiety disorder | CPT/HCPCS: 81000; 81025; 84702; 87077; 87086; 87184 ==

== ENCOUNTER 2022-01-07 12:23 | Outpatient (CLI) | payer MEDICAID, SELFPAY | END 2022-01-07 12:24 | disposition home or self-care (01) | LOC: LAB 12:33 | PROVIDERS: PCP Nurse Practitioner; Visit Provider Obstetrics & Gynecology | DX: Z34.90 Encounter for supervision of normal pregnancy, unspecified, unspecified trimester (principal) | CPT/HCPCS: 80307; 84315; 87086 ==

== ENCOUNTER → 2022-01-19 15:00 | Outpatient (BNVA) | payer MEDICAID, SELFPAY | PROVIDERS: PCP Nurse Practitioner; Visit Provider Obstetrics & Gynecology | DX: O09.899 Supervision of other high risk pregnancies, unspecified trimester (principal); Z3A.00 Weeks of gestation of pregnancy not specified | CPT/HCPCS: 84315; 87086; 87491; 87591; 87661 ==

== ENCOUNTER → 2022-02-19 14:06 | Outpatient (BNVA) | payer MEDICAID, SELFPAY | PROVIDERS: PCP Nurse Practitioner; Visit Provider Obstetrics & Gynecology | DX: O09.899 Supervision of other high risk pregnancies, unspecified trimester (principal); Z3A.00 Weeks of gestation of pregnancy not specified | CPT/HCPCS: 81511; 82950; 84315; 84443; 85025; 86803; 86850; 86900; 87086; 87340; 87806 ==

== ENCOUNTER → 2022-03-16 09:53 | Outpatient (BNVA) | payer MEDICAID, SELFPAY | PROVIDERS: PCP Nurse Practitioner; Visit Provider Nurse Practitioner Family | DX: R00.0 Tachycardia, unspecified (principal); F41.1 Generalized anxiety disorder; R10.9 Unspecified abdominal pain; R51.9 Headache, unspecified | CPT/HCPCS: 85025 ==

== ENCOUNTER → 2022-03-20 16:00 | Outpatient (BNVA) | payer MEDICAID, SELFPAY | PROVIDERS: PCP Nurse Practitioner; Visit Provider Obstetrics & Gynecology | DX: O09.899 Supervision of other high risk pregnancies, unspecified trimester (principal); Z3A.00 Weeks of gestation of pregnancy not specified | CPT/HCPCS: 81000 ==

== ENCOUNTER 2022-03-23 18:15 | Outpatient (CLI) | payer MEDICAID, SELFPAY ==
[2022-03-23] VITALS (18 sets, daily range): BP systolic 114–135; BP diastolic 61–78; PULSE 87–100; RESP 16; TEMP 36.6–36.9; O2SAT 96–100; BMI 42.3
[2022-03-23 19:01] LABS: Add Urine Culture? No; Bacteria Urine 1+ /hpf; Bilirubin Urine Neg (Negative); Blood Urine Neg (Negative); Glucose Urine UA Norm (Normal); Ketones Urine 1+ (Negative); Leukocyte Esterase Urine Trace (Negative); Mucus Urine TRACE /hpf; Nitrate Urine Negative (Negative); Protein Urine Neg (Negative); Specific Gravity, Urine 1.015 (1.005-1.030); Urine Appearance Clear (CLEAR); Urine Color Yellow (Yellow); Urobilinogen Urine Norm (Negative); pH Urine 5 (5-7)
--- NOTE | 2022-03-23 19:22 | USR_ITS ---
PROCEDURE INFORMATION: Exam: US , Limited Exam date and time: 03/23/2022 7:46 PM Age: 21 years old Clinical indication: complicated by abdominal or pelvic pain; Other: Bilateral pelvic pain x 12 hours; Gestational age or lmp: 21w 2 days by lmp; ; Patient HX: Bilateral pelvic cramping x 12 hours, no vaginal bleeding. G3-p2 both births vaginally; Additional info: Abdominal pain, 21.2 weeks TECHNIQUE: Imaging protocol: Real-time ultrasound of the maternal uterus with image documentation. Exam focused on the clinical indication. COMPARISON: US OB >= 14 weeks fetus [facility] 03/16/2022 3:00 PM FINDINGS: Gestation: Single live IUP noted. The AGUSTIN is about 08/01/2022. The estimated weight is about 1 lb 3 oz (528g). heart rate: heart rate is 147 bpm. presentation: The presentation is transverse. Placenta: The placenta is right anterior with no evidence of previa. No hemorrhage noted. Amniotic fluid index: The BAKARI is normal at 16.5 cm. MATERNAL: Cervix: The cervix is closed with length of 7 cm. US/US OB >= 14 weeks fetus [id number] IMPRESSION: 1. Early IUP as described, age of about 22 weeks 2 days with ultrasound estimated AGUSTIN of 07/25/2022. The findings are similar to 03/16/2022. 2. No definite acute finding visualized. Advise appropriate brokerage coordinator follow-up. On this exam, a complete anatomic survey was not performed.
== END 2022-03-23 21:45 | disposition home or self-care (01) ==
LOC: OPOB 18:19 → OBGYN 18:23
PROVIDERS: Absent Provider Obstetrics & Gynecology; Family Provider Obstetrics & Gynecology; PCP Nurse Practitioner; Visit Provider Obstetrics & Gynecology
DX: O26.892 Other specified pregnancy related conditions, second trimester (principal); Z3A.22 22 weeks gestation of pregnancy; R10.9 Unspecified abdominal pain; M54.9 Dorsalgia, unspecified; R05.9 Cough, unspecified; Z20.828 Contact with and (suspected) exposure to other viral communicable diseases
CPT/HCPCS: 76805; 81001; 99211

== ENCOUNTER → 2022-05-05 14:48 | Outpatient (BNVA) | payer MEDICAID, SELFPAY | PROVIDERS: Family Provider Obstetrics & Gynecology; PCP Nurse Practitioner; Visit Provider Nurse Practitioner Family | DX: R05.9 Cough, unspecified (principal); J98.8 Other specified respiratory disorders | CPT/HCPCS: 87486; 87581; 87633 ==

== ENCOUNTER → 2022-05-13 08:59 | Outpatient (BNVA) | payer MEDICAID, SELFPAY | PROVIDERS: Family Provider Obstetrics & Gynecology; PCP Nurse Practitioner; Visit Provider Obstetrics & Gynecology | DX: O09.899 Supervision of other high risk pregnancies, unspecified trimester (principal); Z3A.00 Weeks of gestation of pregnancy not specified | CPT/HCPCS: 82950; 84315; 85025 ==

== ENCOUNTER → 2022-05-25 15:10 | Outpatient (BNVA) | payer MEDICAID, SELFPAY | PROVIDERS: Family Provider Obstetrics & Gynecology; PCP Nurse Practitioner; Visit Provider Obstetrics & Gynecology | DX: O09.899 Supervision of other high risk pregnancies, unspecified trimester (principal); Z3A.30 30 weeks gestation of pregnancy | CPT/HCPCS: 84315; 86592; 86762 ==

== ENCOUNTER → 2022-06-24 13:26 | Outpatient (BNVA) | payer MEDICAID, SELFPAY | PROVIDERS: Family Provider Obstetrics & Gynecology; PCP Nurse Practitioner; Visit Provider Obstetrics & Gynecology | DX: O09.899 Supervision of other high risk pregnancies, unspecified trimester (principal); Z3A.00 Weeks of gestation of pregnancy not specified | CPT/HCPCS: 84315; 85025; 87086 ==

== ENCOUNTER 2022-06-30 12:55 | Outpatient (CLI) | payer MEDICAID, SELFPAY ==
[2022-06-30 13:17] VITALS: TEMP 36.1
[2022-06-30 13:27] VITALS: BP 120/79; PULSE 102
[2022-06-30 13:54] VITALS: RESP 17
[2022-06-30 14:54] LABS: Add Urine Culture? No; Bilirubin Urine Neg (Negative); Blood Urine Neg (Negative); Glucose Urine UA Norm (Normal); Ketones Urine Negative (Negative); Leukocyte Esterase Urine Trace (Negative); Nitrate Urine Negative (Negative); Protein Urine Neg (Negative); RBC Urine RARE /hpf (0-2); Specific Gravity, Urine 1.005 (1.005-1.030); Urine Appearance Clear (CLEAR); Urine Color Yellow (Yellow); Urobilinogen Urine Neg (Negative); WBC Urine 0-4 /hpf (0-5); pH Urine 6.5 (5-7)
== END 2022-06-30 15:17 | disposition home or self-care (01) ==
LOC: OPOB 13:02 → OBGYN 13:05
PROVIDERS: Family Provider Obstetrics & Gynecology; PCP Nurse Practitioner; Visit Provider Obstetrics & Gynecology
DX: O26.899 Other specified pregnancy related conditions, unspecified trimester (principal); R10.9 Unspecified abdominal pain
CPT/HCPCS: 59025; 81001; 99211

== ENCOUNTER → 2022-07-08 14:40 | Outpatient (BNVA) | payer MEDICAID, SELFPAY | PROVIDERS: Family Provider Obstetrics & Gynecology; PCP Nurse Practitioner; Visit Provider Obstetrics & Gynecology | DX: O09.899 Supervision of other high risk pregnancies, unspecified trimester (principal); O46.90 Antepartum hemorrhage, unspecified, unspecified trimester; Z3A.00 Weeks of gestation of pregnancy not specified | CPT/HCPCS: 84315; 87081 ==

== ENCOUNTER 2022-07-09 07:56 | Outpatient (CLI) | payer MEDICAID, SELFPAY ==
--- NOTE | 2022-07-09 07:45 | US_ITS ---
WS: [email or web address] OB ultrasound, 07/09/2022 Clinical Data: O46.90 - Antepartum hemorrhage, unspecified, unspecified ... Comparison: OB ultrasound, 06/24/2022 Findings: There is a single intrauterine in the vertex presentation. The placenta is Anterior and gra de 1. There is a normal amount of amnionic fluid. The heart rate is 124 beats per minute. The c ervix measures 4.90 cm and is closed. [place] [id number] Impression: 1. Single intrauterine in vertex presentation. 2. heart rate 124 beats per minute. 3. Cervix is closed and long.
== END 2022-07-09 07:57 | disposition home or self-care (01) ==
LOC: RAD 07:59
PROVIDERS: PCP Nurse Practitioner; Visit Provider Obstetrics & Gynecology
DX: O46.90 Antepartum hemorrhage, unspecified, unspecified trimester (principal); Z3A.00 Weeks of gestation of pregnancy not specified
CPT/HCPCS: 76816

== ENCOUNTER 2022-07-16 14:37 | Outpatient (CLI) | payer MEDICAID, SELFPAY ==
[2022-07-16] VITALS (14 sets, daily range): BP systolic 107–131; BP diastolic 58–75; PULSE 80–107; RESP 17
[2022-07-16 16:12] LABS: Basophils # 0.1 10^3/uL (0.0-0.1); Basophils % 0.5 %; Eosinophils # 0.1 10^3/uL (0.0-0.8); Eosinophils % 0.7 %; Hematocrit 35.7 % (37.0-47.0); Hemoglobin 10.8 g/dL (11.5-15.3); Lymphocytes # 2.5 10^3/uL (0.8-4.8); Lymphocytes % 15.4 %; Mean Corpuscular HGB Conc 30.3 g/dL (30.0-36.0); Mean Corpuscular Hemoglobin 23.2 pg (28.0-34.0); Mean Corpuscular Volume 76.6 fl (81-99); Mean Platelet Volume 10.1 fL (7.4-10.4); Monocytes # 0.7 10^3/uL (0.2-0.9); Monocytes % 4.2 %; Neutrophils # 12.72 10^3/uL (1.8-7.7); Neutrophils % 78.5 %; Nucleated Red Blood Cells % 0 %; Platelet Count 276 10^3/cmm (130-400); Red Blood Count 4.66 10^6/uL (4.1-5.3); Red Cell Distribution Width 16.6 % (12.1-15.1); White Blood Count 16.2 10^3/uL (4.0-10.0)
[2022-07-16 17:13] LABS: Urine Creatinine 48 mg/dL (28-217); Urine Protein Random 5 mg/dL
[2022-07-16 17:33] LABS: Alanine Aminotransferase 6 U/L (0-33); Albumin Level 3.3 g/dL (3.5-5.2); Alkaline Phosphatase 158 U/L (35-105); Aspartate Amino Transferase 11 U/L (0-32); Blood Urea Nitrogen 6 mg/dL (6-20); Calcium 8.5 mg/dL (8.5-10.5); Carbon Dioxide 24 mmol/L (22-29); Chloride 102 mmol/L (98-107); Globulin 3.5 g/dL (1.3-4.6); Glomerular Filtration Rate 151.6 mL/min (90-130); Glucose 85 mg/dL (65-115); Osmolality Calculated 277 mOsm/kg (285-295); Sodium 135 mmol/L (136-145); Total Bilirubin 0.3 mg/dL (0.15-1.2); Total Protein 6.8 g/dL (6.6-8.7); Uric Acid 3.8 mg/dL (2.4-5.7)
== END 2022-07-16 18:04 | disposition home or self-care (01) ==
LOC: OPOB 14:38 → OBGYN 14:39
PROVIDERS: Obstetrics & Gynecology; PCP Nurse Practitioner; Visit Provider Obstetrics & Gynecology
DX: O14.90 Unspecified pre-eclampsia, unspecified trimester (principal); Z3A.00 Weeks of gestation of pregnancy not specified
CPT/HCPCS: 36415; 59025; 80053; 82570; 84156; 84315; 84550; 85025; 99211

== ENCOUNTER → 2022-07-22 15:22 | Outpatient (BNVA) | payer MEDICAID, SELFPAY | PROVIDERS: PCP Nurse Practitioner; Visit Provider Obstetrics & Gynecology | DX: O09.899 Supervision of other high risk pregnancies, unspecified trimester (principal) | CPT/HCPCS: 84315; 87086 ==

== ENCOUNTER 2022-08-05 00:56 | Inpatient (IN) | payer MEDICAID, SELFPAY ==
[2022-07-16 15:11] VITALS: RESP 17
[2022-08-05] VITALS (64 sets, daily range): BP systolic 80–145; BP diastolic 44–94; PULSE 69–129; RESP 16–20; TEMP 36.6–36.9; O2SAT 100; BMI 44.4
[2022-08-05] MEDS: miSOPROStol 100 mcg tablet 25 MCG VAGINAL ×4 (01:17→14:03)
[2022-08-05 01:18] LABS: Basophils % 0.2 %; Eosinophils # 0.1 10^3/uL (0.0-0.8); Eosinophils % 0.5 %; Hematocrit 37.4 % (37.0-47.0); Hemoglobin 11.2 g/dL (11.5-15.3); Lymphocytes # 2.6 10^3/uL (0.8-4.8); Mean Corpuscular HGB Conc 29.9 g/dL (30.0-36.0); Mean Corpuscular Hemoglobin 22.3 pg (28.0-34.0); Mean Corpuscular Volume 74.4 fl (81-99); Mean Platelet Volume 9.8 fL (7.4-10.4); Monocytes # 0.7 10^3/uL (0.2-0.9); Monocytes % 4.2 %; Neutrophils # 13.89 10^3/uL (1.8-7.7); Neutrophils % 79.6 %; Nucleated Red Blood Cells % 0 %; Platelet Count 270 10^3/cmm (130-400); Red Blood Count 5.03 10^6/uL (4.1-5.3); Red Cell Distribution Width 16.5 % (12.1-15.1); White Blood Count 17.5 10^3/uL (4.0-10.0)
--- NOTE | 2022-08-05 06:23 | PM.OPHPUD ---
Labor & Delivery H&P Update Date of Procedure: August 05, 2022 Date H&P Performed: 07/30/22 H&P update information: I have reviewed H&P completed within last 30 days, I have examined patient prior to procedure and No changes to prior documentation Admission Diagnosis: Related Problem List Diagnoses (1) Morbid obesity: (2) History of oligohydramnios in prior , currently : (3) Supervision of other high risk , antepartum: (4) Generalized anxiety disorder:
--- NOTE | 2022-08-05 17:31 | PM.PN ---
Subjective Subjective: The patient has received four doses of cytotec. She reports that she is starting to feel some pain in her back. status has remained good, throughout. Vitals/I&O/Wt Last Vital Signs Temp 98.5 F 08/05/22 16:23 Pulse 81 08/05/22 16:17 Resp 18 08/05/22 16:23 BP 98/54 08/05/22 16:17 O2 Del Method Room Air 08/05/22 00:30 Weight last 48 hrs Weight 267 lb Data 08/05/22 00:55 A&P Assessment and plan (1) Supervision of other high risk , antepartum: start moderate dose pitocin anticipate Attestations Medical Necessity Statement*: The patient will be here 2 midnights Coding Level of Care Code Acute Code for Chg Fwd Diagnoses Supervision of other high risk , antepartum O09.899
[2022-08-05] MEDS: dextrose 5%-lactated ringers 1,000 ML 125 ML IV (18:43)
--- NOTE | 2022-08-05 19:00 | PC.NURSE ---
175 CAROLE FROM PHARMACY CALLED AND ASK IF I NEEDED PITOCIN AND I TOLD HIM YES AND SO HE WAS GOING TO SEND IT. AND THEN AT 1809 I CALLED HIM BACK AND SAID THAT HE WAS GOING TO HAVE TO CALL OBS AND ASK IF OK TO PUT PITOCIN IN D5W BECAUSE WE ARE OUT OF [place] 500MLS IN HOUSE. PITOCIN SENT OVER AT 1830ISH.
[2022-08-05] MEDS: lactated ringers 1,000 ML 999 ML IV ×2 (19:21→20:53)
[2022-08-05] MEDS: ondansetron 2 mg/ML SDV 2 mL 4 MG IVP (19:32)
--- NOTE | 2022-08-05 20:28 | ANES.PREANE2 ---
Pre-Anesthetic Assessment Height/Weight: Height 1.65 m Weight 121.109 kg Temp Pulse Resp BP Pulse Ox O2 Del Method 98.3 F 99 20 H 113/51 100 Room Air 08/05/22 18:44 08/05/22 20:25 08/05/22 18:44 08/05/22 20:25 08/05/22 20:15 08/05/22 00:30 epidural Familial anesthetic complications: got super numb from previous epidural, couldn't feel legs and it had to be turned down Social No alcohol and No tobacco Exam alert, oriented x 3, clear to auscultation bilaterally and regular rate & rhythm Airway Mallampati: Class III Dentition: full Metabolic Morbid Obesity Anesthetic Plan ASA status: 3 Anesthesia: Regional (specify below) Risk of > 500 ml blood loss (7ml/kg in children): No Medications/Allergies Home Medications Medication Instructions Recorded Confirmed Last Taken Type PNV 153-FA 400 mcg-om3 35 mg-dha tab PO 01/07/22 07/30/22 Unknown History 25 mg-epa 5 mg-fish oil chew tablet ( Gummies) cyclobenzaprine 10 mg tablet 10 mg PO .Q6 PRN muscle spasm #30 02/13/22 07/30/22 Unknown Rx tabs Allergies Allergy/AdvReac Type Severity Reaction Status Date / Time No Known Allergies Allergy Verified 07/30/22 14:32 Current Medications Generic Name Dose Route Start Last Admin Trade Name Freq PRN Reason Stop Dose Admin Dextrose/Lactated Ringer's 1,000 mls @ 125 mls/hr 08/05/22 01:00 08/05/22 18:43 Dextrose 5%-Lactated Ringers IV 125 mls/hr .Q8H FLORINDA Administration Lactated Ringer's 1,000 mls @ 999 mls/hr 08/05/22 19:08 08/05/22 19:21 Lactated Ringers IV 999 mls/hr .Q1H1M PRN Administration See label comments Misoprostol 25 mcg 08/05/22 14:00 08/05/22 14:03 Misoprostol 100 Mcg Tablet VAGINAL 25 mcg ONCE FLORINDA Administration Ondansetron HCl 4 mg 08/05/22 00:56 08/05/22 19:32 Ondansetron 2 Mg/Ml Sdv 2 Ml IVP 4 mg Q4H PRN Administration NAUSEA AND VOMITING PFSH Anesthesia Medical History (Updated 08/05/22 @ 06:25 by Clara Diaz MD) Back pain Chronic migraine Generalized anxiety disorder No pertinent past medical history neghx: htn,dm,thyroid,dvt/pe PCP: Jack Boogie Surgical History No history of previous surgery Family History Family/Other No problems noted. Grandmother Diabetes MGM, PGM Breast cancer MGM diagnosed at 75 y/o Denies family history of Colon cancer Ovarian cancer Heart disease Hypercholesteremia Hyperlipidemia Hypertension Uterine cancer Thyroid disease Stroke Social History Substance/Drug Use: never Do you think of yourself as: Straight/Heterosexual Female Reproductive History : 3 Data Anesthesia 08/05/22 00:55 Short CBC 08/05/22 Range/Units 00:55 WBC 17.5 H (4.0-10.0) 10^3/uL Hgb 11.2 L (11.5-15.3) g/dL Hct 37.4 (37.0-47.0) % MCV 74.4 L (81-99) fl Plt Count 270 (130-400) 10^3/cmm Neut % (Auto) 79.6 % Neut # (Auto) 13.89 H (1.8-7.7) 10^3/uL Cardiac Studies: No Data to Display
--- NOTE | 2022-08-05 20:29 | ANES.PROC ---
Anesthesia Procedures Procedure/Date: 08/05/22 Epidural: Time Out Performed: Yes Consents Signed: Procedure Consent Consent: requested by attending/covering physician, from patient, from other, risks and benefits reviewed and patient agrees to proceed Lumbar Level: L3-L4 Epidural position: sitting Epidural procedure: sterile prep of area, 1% lidocaine to numb the area, 18 g needle, negative for paresthesia passed, neg for paresthesia, test dose given, 1.5% xylocaine 1:200k epi (5 cc), 0.2% Ropivacaine bolus ml (5 ), placed PCEA, no systemic response, sterile dressing applied, L.U.D. no apparent complications and 0.2% Ropiavacaine @ mls/hr (8) Additional Comments: TAL at 7 cm, threaded to 13 cm. Patient reported numb legs, but still able to move them well though somewhat weak. BP stable, no dyspnea. Thus will pause pump for 15 minute and resume at rate of 8 ml/hr d/t previous hx and current demonstration of sensitivity to epidural anesthetic. If patient becomes uncomfortable may increase rate back up to 10 to 13 ml/hr
[2022-08-06] VITALS (24 sets, daily range): BP systolic 83–132; BP diastolic 50–82; PULSE 67–108; RESP 15–17; TEMP 36.6–37.2; O2SAT 98–100
[2022-08-06] MEDS: ondansetron 2 mg/ML SDV 2 mL 4 MG IVP (01:00)
--- NOTE | 2022-08-06 02:07 | PM.DELIVERY ---
Delivery Note: Date of delivery: August 06, 2022 Pre-delivery diagnoses: iup@ 40w5d, morbid obesity, STERLING Post-delivery diagnoses: same, delivered Procedure: Delivering Physician: Dr. pitt Estimated blood loss (mL): 5 Findings: term female in the SUNDAR presentation Pre-Delivery Course: The patient was admitted for induction at term. She received 4 doses of cytotec and was sameer on her own. She had SROM of thick meconium. She received an epidural for pain management. A low dose of pitocin was required for augmentation. She had complete cervical dilation and began pushing. Delivery: The patient had complete cervical dilation and began to push. The head delivered in the SUNDAR position over an intact perineum under epidural anesthesia. The nose and mouth were bulb suctioned. The shoulders and body delivered atraumatically. The baby was placed onto the mother's abdomen. The cord was clamped and cut. Cord blood was obtained. There was a true knot in the cord. The placenta delivered spontaneously. It was inspected and found to be intact. Inspection of the perineum revealed a first-degree laceration which was repaired with 1 single stitch. Estimated blood loss 5 mL. Apgars on baby were 8 at 1 minute and 9 at 5 minutes. Weight of baby is 7 pounds 7 ounces. Mother and baby were stable post delivery. History History History 3 Term 2 0 Miscarriages/Ectopic 0 Living Children 2 Coding Level of Care Code Acute Code for Chg Fwd Diagnoses
[2022-08-06] MEDS: acetaminophen 325 mg Tablet 650 MG PO ×2 (03:13→18:22)
--- NOTE | 2022-08-06 07:42 | PC.NURSE ---
Pt had 2 episodes with moderate to heavy bleeding, with clots. All chux pads weighed. Approximate blood loss weighed out to 440ml. With fundal massage, clots were expelled and bleeding returned to scant
[2022-08-06] MEDS: ibuprofen 800 mg tablet PO ×3 (08:09→20:59)
[2022-08-06] MEDS: prenatal vitamin Capsule 1 CAP PO (08:09)
[2022-08-06] MEDS: docusate sodium 100 mg Capsule PO ×2 (08:09→18:22)
--- NOTE | 2022-08-06 13:39 | ANE.PACU2 ---
Inpatient post-anesthesia follow up: Airway intact: Yes Vital signs: Temperature 98.9 F Pulse Rate 77 Respiratory Rate 15 Blood Pressure 128/76 Pulse Oximetry 100 Oxygen Delivery Me thod Room Air Oxygen Flow Rate Fraction of Inspir ed Oxygen Hydration adequate: Yes Nausea and vomiting: Yes Pain level: 1 Mental status: Baseline
[2022-08-06 15:35] LABS: Hematocrit 30.6 % (37.0-47.0); Hemoglobin 9.1 g/dL (11.5-15.3); Mean Corpuscular HGB Conc 29.7 g/dL (30.0-36.0); Mean Corpuscular Hemoglobin 22.5 pg (28.0-34.0); Mean Corpuscular Volume 75.6 fl (81-99); Mean Platelet Volume 10.1 fL (7.4-10.4); Platelet Count 198 10^3/cmm (130-400); Red Blood Count 4.05 10^6/uL (4.1-5.3); Red Cell Distribution Width 16.4 % (12.1-15.1); White Blood Count 13.2 10^3/uL (4.0-10.0)
[2022-08-07] MEDS: acetaminophen 325 mg Tablet 650 MG PO (03:59)
[2022-08-07 04:02] VITALS: BP 121/79; PULSE 74; RESP 15; TEMP 37; O2SAT 97
[2022-08-07] MEDS: ibuprofen 800 mg tablet PO (09:02)
[2022-08-07] MEDS: prenatal vitamin Capsule 1 CAP PO (09:02)
[2022-08-07] MEDS: docusate sodium 100 mg Capsule PO (09:02)
--- NOTE | 2022-08-07 09:41 | P.DS_ITS ---
Discharge Providers Date of Admission: 08/05/22 00:56 Date of Discharge: August 07, 2022 Attending Provider at Admission: Clara Diaz MD Attending Provider at Discharge: Clara Diaz MD Primary Care Provider: BRADY Coffey Diagnoses at Discharge Discharge Diagnosis (1) Supervision of other high risk , antepartum: Status: Acute Reason for Visit Reason for Visit: induction Hospital Course Hospital Course The patient had induction of labor at term. She did well and requested discharge on PP day #1 Physical Exam Narrative: The patient is doing well this morning. No concerns. She is tolerating a regular diet and ambulating well. Const: COMMON NORMALS: no acute distress, patient oriented x3, no limitations, alert and well nourished GENERAL APPEARANCE: cooperative, comfortable, well kempt and well developed ORIENTATION/CONSCIOUSNESS: Yes awake, Yes oriented to person, Yes oriented to place and Yes oriented to time Resp: COMMON NORMALS: normal respiratory effort EFFORT & INSPECTION: Yes able to speak in complete sentences GI: COMMON NORMALS: Soft to palpation and non-tender PALPATION: Yes Soft to palpation Extremity: COMMON NORMALS: no calf tenderness Neuro: COMMON NORMALS: patient oriented x3 SENSORIUM/ORIENTATION: Yes alert, Yes oriented to person, Yes oriented to place and Yes oriented to time Psych: COMMON NORMALS: mental status grossly normal, Normal thought process present, cooperative, normal affect and speech normal APPEARANCE: Yes well kempt SPEECH: Yes normal speech THOUGHT PROCESS: Normal thought process present Urinary Catheter Management: Cooper: Cath Placed During This Visit: yes, but has since been removed by the nurse Reason for Continuing Indwelling Catheter: Decision to DC Catheter Urinary Catheter Date of Insertion: 08/05/22 Urinary Catheter Time of Insertion: 21:45 Date Urinary Catheter Removed: 08/06/22 Time Urinary Catheter Discontinued: 01:30 Discharge Data Studies Completed and Pending Laboratory Results WBC 13.2 10^3/uL (4.0-10.0) H 08/06/22 15:20 RBC 4.05 10^6/uL (4.1-5.3) L 08/06/22 15:20 Hgb 9.1 g/dL (11.5-15.3) L 08/06/22 15:20 Hct 30.6 % (37.0-47.0) L 08/06/22 15:20 MCV 75.6 fl (81-99) L 08/06/22 15:20 MCH 22.5 pg (28.0-34.0) L 08/06/22 15:20 MCHC 29.7 g/dL (30.0-36.0) L 08/06/22 15:20 RDW 16.4 % (12.1-15.1) H 08/06/22 15:20 Plt Count 198 10^3/cmm (130-400) 08/06/22 15:20 MPV 10.1 fL (7.4-10.4) 08/06/22 15:20 Neut % (Auto) 79.6 % 08/05/22 00:55 Lymph % (Auto) 15.0 % 08/05/22 00:55 [place] % (Auto) 4.2 % 08/05/22 00:55 Eos % (Auto) 0.5 % 08/05/22 00:55 Baso % (Auto) 0.2 % 08/05/22 00:55 Neut # (Auto) 13.89 10^3/uL (1.8-7.7) H 08/05/22 00:55 Lymph # (Auto) 2.6 10^3/uL (0.8-4.8) 08/05/22 00:55 [place] # (Auto) 0.7 10^3/uL (0.2-0.9) 08/05/22 00:55 Eos # (Auto) 0.1 10^3/uL (0.0-0.8) 08/05/22 00:55 Baso # (Auto) 0.0 10^3/uL (0.0-0.1) 08/05/22 00:55 Nucleated RBC % (auto) 0 % 08/05/22 00:55 Nucleated RBCs # 0.0 /100WBC 08/05/22 00:55 Vitals Last Vital Signs Temp 98.6 F 08/07/22 04:02 Pulse 74 08/07/22 04:02 Resp 15 08/07/22 04:02 BP 121/79 08/07/22 04:02 Pulse Ox 97 08/07/22 04:02 O2 Del Method Room Air 08/07/22 04:02 Discharge Plan Discharge Patient Disposition: Home Condition: Stable Prescriptions: Continued Gummies 400 mcg-35 mg- 25 mg-5 mg tablet,chewable PO cyclobenzaprine 10 mg tablet 10 mg PO .Q6 PRN (Reason: muscle spasm) Qty: 30 1RF Discharge Orders: Discharge Order (Routine); Ordered 08/07/22 Ordered By: Clara Diaz Referrals: Clara Diaz MD [Physician] - 08/20/22 2:45 pm ( ) Patient Instructions: Depression (DC), Bleeding (DC), Preeclampsia and Eclampsia After Delivery (GEN), Hemorrhage (DC), OB Discharge Report, OB Food/Drug Interaction Guide, Opioid Safety, OB Home Care, OB Vaginal Deliveries - [facility] Discharge Attestations Time Spent in Discharge Care*: less than 30 min Quality Metrics Clinical Quality Measures [ No reported AMI, CVA or VTE this stay] Coding Level of Care Code Acute Code for Chg Fwd Diagnoses Supervision of other high risk , antepartum O09.899
[2022-08-07 11:25] VITALS: BP 130/85; PULSE 75; TEMP 36.8; O2SAT 99
== END 2022-08-07 11:40 | disposition home or self-care (01) | DRG 807 ==
LOC: OPOB 08:05 → OBGYN 08:05
PROVIDERS: Admitting Provider Obstetrics & Gynecology; PCP Nurse Practitioner; Visit Provider Obstetrics & Gynecology
DX: O48.0 Post-term pregnancy (principal); Z37.0 Single live birth; Z3A.40 40 weeks gestation of pregnancy; O99.344 Other mental disorders complicating childbirth; F41.1 Generalized anxiety disorder; O70.0 First degree perineal laceration during delivery; O69.2XX0 Labor and delivery complicated by other cord entanglement, with compression, not applicable or unspecified; O99.214 Obesity complicating childbirth; E66.01 Morbid (severe) obesity due to excess calories
CPT/HCPCS: 36415; 51702; 59025; 59409; 85025; 85027; 96374; 98960; 99211; J2405; J2795; J7060; J7120; J7121

== ENCOUNTER 2023-03-18 19:08 | Emergency (ER) | payer MEDICAID, SELFPAY ==
[2023-03-18 19:15] VITALS: BP 116/78; PULSE 96; RESP 20; TEMP 36.5; O2SAT 98
[2023-03-18 20:21] LABS: Basophils # 0.1 10^3/uL (0.0-0.1); Basophils % 0.5 %; Eosinophils # 0.2 10^3/uL (0.0-0.8); Eosinophils % 1.4 %; Hematocrit 38.4 % (36-47); Lymphocytes # 1.9 10^3/uL (0.8-4.8); Lymphocytes % 16.2 %; Mean Corpuscular HGB Conc 30.7 g/dL (30-55); Mean Corpuscular Hemoglobin 23.6 pg (27-33); Mean Corpuscular Volume 76.8 fl (85-98); Mean Platelet Volume 10.2 fL (7.4-10.4); Monocytes # 0.6 10^3/uL (0.2-0.9); Monocytes % 5.3 %; Neutrophils # 8.73 10^3/uL (1.8-7.7); Neutrophils % 76.3 %; Nucleated Red Blood Cells % 0 %; Platelet Count 256 10^3/cmm (157-399); Red Cell Distribution Width 14.6 % (12.1-15.1); White Blood Count 11.46 10^3/uL (3.29-11.43)
--- NOTE | 2023-03-18 20:21 | CTR_ITS ---
PROCEDURE INFORMATION: Exam: CT Abdomen And Pelvis With Contrast Exam date and time: 03/18/2023 9:00 PM Age: 22 years old Clinical indication: Abdominal pain; Localized; Left lower quadrant (llq); Additional info: Llq pain TECHNIQUE: Imaging protocol: Computed tomography of the abdomen and pelvis with contrast. Radiation optimization: All CT scans at this facility use at least one of these dose optimization techniques: automated exposure control; mA and/or kV adjustment per patient size (includes targeted exams where dose is matched to clinical indication); or iterative reconstruction. Contrast material: OMNI 350; Contrast volume: 100 ml; Contrast route: INTRAVENOUS (IV); COMPARISON: CR XR abdomen 1V* [id number] 06/10/2021 4:03 PM RADIATION DOSE METRICS: Total DLP (mGy-cm): 1149 FINDINGS: Liver: Normal. No mass. Gallbladder and bile ducts: Normal. No calcified stones. No ductal dilation. Pancreas: Normal. No ductal dilation. Spleen: Normal. No splenomegaly. Adrenal glands: Normal. No mass. Kidneys and ureters: Normal. No hydronephrosis. Stomach and bowel: Unremarkable. No obstruction. No mucosal thickening. Appendix: No evidence of appendicitis. Intraperitoneal space: Unremarkable. No free air. No significant fluid collection. Vasculature: Unremarkable. No abdominal aortic aneurysm. Lymph nodes: Unremarkable. No enlarged lymph nodes. Urinary bladder: Unremarkable as visualized. Reproductive: Unremarkable as visualized. Bones/joints: Unremarkable. No acute fracture. Soft tissues: Unremarkable. Other findings: Small amount of free simple fluid in the pelvis. CT/CT abdomen pelvis w con* [id number] IMPRESSION: 1. No bowel obstruction or inflammatory process associated with the bowel. 2. No free air or significant free fluid in the abdomen or pelvis. 3. The appendix images normally.
[2023-03-18 20:22] VITALS: BP 130/99; PULSE 89; RESP 16; O2SAT 100
--- NOTE | 2023-03-18 20:23 | ED_ITS ---
HPI - Abdominal Pain 2 General: Chief Complaint: Abdominal Pain Stated Complaint: abd pain Time Seen by Provider: 03/18/23 20:05 Source: patient and EMS Mode of arrival: EMS Limitations: no limitations History of Present Illness: 22-year-old female states she was cookin g dinner little over 2 hours ago when she states she had sudden onset of left lower quadrant pain states that it radiated into her pelvis was severe in nature rates an 8 out of 10 she has had no vomiting no diarrhea denies any vaginal bleeding denies any discharge. Associated Symptoms: Denies chills, diarrhea, fever(s), nausea and vomiting Review of Systems 2 Const: Denies: fever(s), chills, body aches or change in appetite ENMT: Denies: throat pain or dental pain Card: Denies: chest pain Resp: Denies: dyspnea GI: Reports: abdominal pain; Denies: nausea, vomiting or diarrhea Musc: Denies: neck pain or back pain Skin/Breast: Denies: rash Neuro: Denies: headache(s) PFSH ED 2 PFSH: Medical History History of oligohydramnios in prior , currently No pertinent past medical history neghx: htn,dm,thyroid,dvt/pe PCP: Jack Boogie Generalized anxiety disorder Chronic migraine Back pain Surgical History No history of previous surgery Family History Family/Other No problems noted. Grandmother Diabetes MGM, PGM Breast cancer MGM diagnosed at 77 y/o Denies family history of Colon cancer Ovarian cancer Heart disease Hypercholesteremia Hyperlipidemia Hypertension Uterine cancer Thyroid disease Stroke Social History Substance/Drug Use: never Do you think of yourself as: Straight/Heterosexual Physical Exam 2 Const: COMMON NORMALS: no acute distress, patient oriented x3 and healthy appearing HENMT: COMMON NORMALS: normocephalic and atraumatic HEAD & SCALP: n ormocephalic and atraumatic Neck/C-Spine: COMMON NORMALS: full ROM and supple Chest: COMMONS NORMALS: normal inspection of the chest Resp: COMMON NORMALS: normal respiratory effort Cardio: COMMON NORMALS: regular rate, regular rhythm and No murmurs present (Cardio) RATE: regular rate RHYTHM: regular rhythm GI: COMMON NORMALS: Normal to inspection, nondistended, normoactive bowel sounds present, Soft to palpation and no masses PALPATION: Yes Soft to palpation and Yes Tenderness to palpation present (GI) Details: LLQ Extremity: COMMON NORMALS: normal to inspection and full ROM Neuro: COMMON NORMALS: patient oriented x3, moves all extremities and no focal motor deficits Psych: COMMON NORMALS: mental status grossly normal, Normal thought process present and cooperative THOUGHT PROCESS: Normal thought process present Skin: COMMON NORMALS: no rashes or lesions noted and no wounds GENERAL SKIN EXAM: no rashes or lesions noted Course 2 Vital Signs: Vital signs: Vital Signs Temperature 97.7 F 03/18/23 19:15 Pulse Rate 80 03/18/23 21:32 Respiratory Rate 18 03/18/23 21:32 Blood Pressure 119/64 03/18/23 21:32 Pulse Oximetry 100 03/18/23 21:32 Oxygen Delivery Me thod Room Air 03/18/23 21:32 MDM - Abdominal Pain Medical Decision Making Patient presents here with abdominal pain story is consistent likely ruptured ovarian cyst CT showed no acute findings blood work here is normal her pain has improved. She is stable for discharge follow-up with PCP and return if worsening. Medical Records I reviewed the patient's medical records. Lab Data I reviewed the patient's lab results. 03/18/23 20:10 03/18/23 20:10 Labs/Radiology: Radiology Impressions Abdomen/Pelvis CT 03/18/23 20:21 IMPRESSION: 1. No bowel obstruction or inflammatory process associated with the bowel. 2. No free air or significant free fluid in the abdomen or pelvis. 3. The appendix images normally. Laboratory Results WBC 11.46 10^3/uL (3.29-11.43) H 03/18/23 20:10 RBC 5.00 10^6/uL (3.85-5.65) 03/18/23 20:10 Hgb 11.80 g/dL (11.27-16.99) 03/18/23 20:10 Hct 38.4 % (36-47) 03/18/23 20:10 MCV 76.8 fl (85-98) L 03/18/23 20:10 MCH 23.6 pg (27-33) L 03/18/23 20:10 MCHC 30.7 g/dL (30-55) 03/18/23 20:10 RDW 14.6 % (12.1-15.1) 03/18/23 20:10 Plt Count 256 10^3/cmm (157-399) 03/18/23 20:10 MPV 10.2 fL (7.4-10.4) 03/18/23 20:10 Neut % (Auto) 76.3 % 03/18/23 20:10 Lymph % (Auto) 16.2 % 03/18/23 20:10 [place] % (Auto) 5.3 % 03/18/23 20:10 Eos % (Auto) 1.4 % 03/18/23 20:10 Baso % (Auto) 0.5 % 03/18/23 20:10 Neut # (Auto) 8.73 10^3/uL (1.8-7.7) H 03/18/23 20:10 Lymph # (Auto) 1.9 10^3/uL (0.8-4.8) 03/18/23 20:10 [place] # (Auto) 0.6 10^3/uL (0.2-0.9) 03/18/23 20:10 Eos # (Auto) 0.2 10^3/uL (0.0-0.8) 03/18/23 20:10 Baso # (Auto) 0.1 10^3/uL (0.0-0.1) 03/18/23 20:10 Nucleated RBC % (auto) 0 % 03/18/23 20:10 Nucleated RBCs # 0.0 /100WBC 03/18/23 20:10 Sodium 139 mmol/L (136-145) 03/18/23 20:10 Potassium 3.8 mmol/L (3.5-5.1) 03/18/23 20:10 Chloride 103 mmol/L (98-107) 03/18/23 20:10 Carbon Dioxide 24 mmol/L (22-29) 03/18/23 20:10 Anion Gap 15.8 (5-19) 03/18/23 20:10 BUN 12 mg/dL (6-20) 03/18/23 20:10 Creatinine 0.8 mg/dL (0.5-0.9) 03/18/23 20:10 GFR Calculation 88.1 mL/min (90-130) L 03/18/23 20:10 Glucose 112 mg/dL (65-115) 03/18/23 20:10 Calculated Osmolality 289 mOsm/kg (285-295) 03/18/23 20:10 Calcium 9.4 mg/dL (8.5-10.5) 03/18/23 20:10 Total Bilirubin 0.2 mg/dL (0.15-1.2) 03/18/23 20:10 AST 11 U/L (0-32) 03/18/23 20:10 ALT 8 U/L (0-33) 03/18/23 20:10 Alkaline Phosphatase 132 U/L (35-105) H 03/18/23 20:10 Total Protein 7.4 g/dL (6.6-8.7) 03/18/23 20:10 Albumin 3.6 g/dL (3.5-5.2) 03/18/23 20:10 Globulin 3.8 g/dL (1.3-4.6) 03/18/23 20:10 Lipase 20 U/L (13-60) 03/18/23 20:10 HCG, Qual Negative (Negative) 03/18/23 20:10 Urine Color Yellow (Yellow) 03/18/23 20:39 Urine Appearance Sl hazy (CLEAR) A 03/18/23 20:39 Urine pH 5 (5-7) 03/18/23 20:39 Ur Specific Opp 1.020 (1.005-1.030) 03/18/23 20:39 Urine Protein Trace (Negative) 03/18/23 20:39 Urine Glucose (UA) Norm (Normal) 03/18/23 20:39 Urine Ketones 1+ (Negative) H 03/18/23 20:39 Urine Blood Neg (Negative) 03/18/23 20:39 Urine Nitrate Negative (Negative) 03/18/23 20:39 Urine Bilirubin 1+ (Negative) H 03/18/23 20:39 Urine Urobilinogen 1 mg/dL (Negative) H 03/18/23 20:39 Ur Leukocyte Esterase Trace (Negative) H 03/18/23 20:39 Urine RBC None /hpf (0-2) 03/18/23 20:39 Urine WBC 0-4 /hpf (0-5) H 03/18/23 20:39 Ur Squamous Epith Cells 5-10 /hpf (0-5) H 03/18/23 20:39 Amorphous Sediment Not Reportable 03/18/23 20:39 Urine Bacteria 1+ /hpf (NONE) H 03/18/23 20:39 Urine Mucus 3+ /hpf 03/18/23 20:39 All radiology interpretation(s) finalized by discharge Discharge Plan Discharge Patient Disposition: Home Clinical Impression: Abdominal pain Qualifiers: Abdominal location: generalized Qualified Code(s): R10.84 - Generalized abdominal pain Condition: Stable Prescriptions: No Action ibuprofen 800 mg tablet 800 mg PO TID PRN (Reason: pain) Qty: 60 0RF amoxicillin 875 mg tablet 875 mg PO BID Qty: 20 0RF azithromycin 250 mg tablet See Rx Instructions PO .COMPLEX Qty: 6 0RF Rx Instructions: For 250 mg dose pack: take 500 mg today (day 1), then 250 mg for 4 days (days 2-5) PO prednisone 20 mg tablet 20 mg PO BID Qty: 6 0RF promethazine-DM 6.25-15 mg/5 mL syrup 5 - 10 ml PO Q6H PRN (Reason: cough) Qty: 240 0RF Xulane 150-35 mcg/24 hr patch weekly 1 patch transdermal Q7D Qty: 3 12RF Rx Instructions: apply once weekly for 3 weeks of a 4-week cycle buspirone 10 mg tablet 10 mg PO BID Qty: 60 5RF Discharge Orders: Discharge ED (Routine); Ordered 03/18/23 Ordered By: Stiven Grier Referrals: Emily Hernandez, [employer] TECH[employer]OLOGIST[employer] [Primary Care Provider] - 1-3 days Discharge Diet: Advance as tolerated Discharge Activity: Resume usual activity Patient Instructions: Abdominal Pain (ED) Coding Level of Care Code ED Print Line Tailer for Teresa Suarez
[2023-03-18 20:41] LABS: Alanine Aminotransferase 8 U/L (0-33); Albumin Level 3.6 g/dL (3.5-5.2); Alkaline Phosphatase 132 U/L (35-105); Anion Gap 15.8 (5-19); Aspartate Amino Transferase 11 U/L (0-32); Blood Urea Nitrogen 12 mg/dL (6-20); Calcium 9.4 mg/dL (8.5-10.5); Carbon Dioxide 24 mmol/L (22-29); Chloride 103 mmol/L (98-107); Globulin 3.8 g/dL (1.3-4.6); Glomerular Filtration Rate 88.1 mL/min (90-130); Glucose 112 mg/dL (65-115); HCG, Serum Qual Negative (Negative); Lipase 20 U/L (13-60); Osmolality Calculated 289 mOsm/kg (285-295); Potassium 3.8 mmol/L (3.5-5.1); Sodium 139 mmol/L (136-145); Total Bilirubin 0.2 mg/dL (0.15-1.2); Total Protein 7.4 g/dL (6.6-8.7)
[2023-03-18 20:55] LABS: Bilirubin Urine 1+ (Negative); Blood Urine Neg (Negative); Glucose Urine UA Norm (Normal); Ketones Urine 1+ (Negative); Leukocyte Esterase Urine Trace (Negative); Nitrate Urine Negative (Negative); Protein Urine Trace (Negative); Urine Appearance SL Hazy (CLEAR); Urine Color Yellow (Yellow); Urobilinogen Urine 1 mg/dL (Negative); pH Urine 5 (5-7)
[2023-03-18 20:56] LABS: Add Urine Microscopic? YES
[2023-03-18 20:57] LABS: Add Urine Culture? No; Bacteria Urine 1+ /hpf; Mucus Urine 3+ /hpf; WBC Urine 0-4 /hpf (0-5)
[2023-03-18] MEDS: iohexol 350 mg/mL 500 mL Btl (per mL) IV (21:04)
[2023-03-18] MEDS: sodium chloride 0.9% 1,000 ML 999 ML IV (21:16)
[2023-03-18 21:32] VITALS: BP 119/64; PULSE 80; RESP 18; O2SAT 100
[2023-03-18 21:47] VITALS: BP 119/64; PULSE 80; RESP 18; TEMP 36.5; O2SAT 100
== END 2023-03-18 21:48 | disposition home or self-care (01) ==
PROVIDERS: Emergency Provider Emergency Medicine; PCP Nurse Practitioner
DX: R10.84 Generalized abdominal pain (principal)
CPT/HCPCS: 74177; 80053; 81001; 83690; 84703; 85025; 99285; J7030; Q9967

== ENCOUNTER → 2023-04-05 09:38 | Outpatient (BNVA) | payer MEDICAID, SELFPAY | PROVIDERS: PCP Nurse Practitioner; Visit Provider Nurse Practitioner Family | DX: M25.50 Pain in unspecified joint (principal); M54.2 Cervicalgia; M54.9 Dorsalgia, unspecified; G89.29 Other chronic pain; R10.2 Pelvic and perineal pain; N83.209 Unspecified ovarian cyst, unspecified side | CPT/HCPCS: 80053; 84443; 85025; 85651; 86140; 86160; 86162; 86235; 86255; 86376; 86431 ==

== ENCOUNTER → 2023-04-14 09:28 | Outpatient (BNVA) | payer MEDICAID, SELFPAY | PROVIDERS: PCP Nurse Practitioner; Visit Provider Nurse Practitioner Family | DX: M54.2 Cervicalgia (principal); M54.9 Dorsalgia, unspecified; G89.29 Other chronic pain | CPT/HCPCS: 72040; 72070; 72100; 83540 ==

== ENCOUNTER → 2023-06-15 10:17 | Outpatient (BNVA) | payer MEDICAID, SELFPAY | PROVIDERS: PCP Nurse Practitioner; Visit Provider Nurse Practitioner Family | DX: R39.9 Unspecified symptoms and signs involving the genitourinary system (principal); F41.1 Generalized anxiety disorder; N94.9 Unspecified condition associated with female genital organs and menstrual cycle | CPT/HCPCS: 81000; 87491; 87591 ==

== ENCOUNTER → 2023-06-23 08:31 | Outpatient (BNVA) | payer MEDICAID, SELFPAY | PROVIDERS: PCP Nurse Practitioner; Visit Provider Obstetrics & Gynecology | DX: N93.9 Abnormal uterine and vaginal bleeding, unspecified (principal) | CPT/HCPCS: 81025 ==

== ENCOUNTER 2023-08-04 06:00 | Outpatient (RCR) | payer MEDICAID, SELFPAY | END 2023-08-06 23:59 | disposition home or self-care (01) | LOC: APT 06:00 | PROVIDERS: Visit Provider Nurse Practitioner Family | DX: M54.50 Low back pain, unspecified (principal); G89.29 Other chronic pain | CPT/HCPCS: 97161 ==

== ENCOUNTER 2023-08-07 06:00 | Outpatient (RCR) | payer MEDICAID, SELFPAY | END 2023-09-05 23:59 | disposition home or self-care (01) | LOC: APT 06:00 | PROVIDERS: Visit Provider Nurse Practitioner Family | DX: M54.50 Low back pain, unspecified (principal); G89.29 Other chronic pain | CPT/HCPCS: 97110; 97112; 97140; 97530 ==

== ENCOUNTER → 2023-08-13 09:48 | Outpatient (BNVA) | payer MEDICAID, SELFPAY | PROVIDERS: PCP Nurse Practitioner Family; Visit Provider Nurse Practitioner Family | DX: R10.9 Unspecified abdominal pain (principal); R30.0 Dysuria | CPT/HCPCS: 81000 ==

== ENCOUNTER 2023-09-06 06:00 | Outpatient (RCR) | payer MEDICAID, SELFPAY | END 2023-10-06 23:59 | disposition home or self-care (01) | LOC: APT 06:00 | PROVIDERS: PCP Nurse Practitioner Family; Visit Provider Nurse Practitioner Family | DX: M54.50 Low back pain, unspecified (principal); G89.29 Other chronic pain | CPT/HCPCS: 97110; 97112; 97140; 97530 ==

== ENCOUNTER → 2023-11-24 09:57 | Outpatient (BNVA) | payer MEDICAID, SELFPAY | PROVIDERS: PCP Nurse Practitioner Family; Visit Provider Nurse Practitioner Family | DX: R42 Dizziness and giddiness (principal); M54.50 Low back pain, unspecified; M54.9 Dorsalgia, unspecified | CPT/HCPCS: 80053; 81000; 84443; 85025 ==

== ENCOUNTER 2023-12-13 09:25 | Outpatient (CLI) | payer MEDICAID, SELFPAY ==
--- NOTE | 2023-12-13 09:30 | CTR_ITS ---
PROCEDURE INFORMATION: Exam: CT Abdomen And Pelvis With Contrast Exam date and time: 12/13/2023 10:55 AM Age: 23 years old Clinical indication: Abdominal pain; Localized; Lower; Additional info: R10.30 - lower abdominal pain, unspecified TECHNIQUE: Imaging protocol: Computed tomography of the abdomen and pelvis with contrast. Axial, coronal and sagittal reformatted images were created and reviewed. Radiation optimization: All CT scans at this facility use at least one of these dose optimization techniques: automated exposure control; mA and/or kV adjustment per patient size (includes targeted exams where dose is matched to clinical indication); or iterative reconstruction. Contrast material: OMNI 350; Contrast volume: 100 ml; Contrast route: INTRAVENOUS (IV); COMPARISON: CT abdomen pelvis w con* [id number] 03/18/2023 9:00 PM RADIATION DOSE METRICS: Total DLP (mGy-cm): 1071.9 FINDINGS: Liver: Unremarkable. Gallbladder and biliary ducts: No radiodense gallstones. No biliary ductal dilatation. Pancreas: Unremarkable. Spleen: Unremarkable. Adrenal glands: Normal. No mass. Kidneys and ureters: No mass. No radiodense calculi. No hydronephrosis. Stomach and bowel: No bowel wall thickening. No obstruction. No pneumatosis. Appendix: Normal. Intraperitoneal space: No free fluid. No organized fluid collection. No free air. Vasculature: Unremarkable. No aneurysm. Lymph nodes: No pathologically enlarged lymph nodes. Urinary bladder: Unremarkable as visualized. Reproductive: Unremarkable. Bones/joints: No acute osseous abnormality. Soft tissues: Unremarkable. CT/CT abdomen pelvis w con* [id number] IMPRESSION: No CT evidence of acute intra-abdominal or pelvic pathology.
[2023-12-13] MEDS: iohexol 350 mg/mL 500 mL Btl (per mL) IV (11:10)
[2023-12-13] MEDS: iohexol 350 mg/mL 500 mL Btl (per mL) PO (11:10)
== END 2023-12-13 09:26 | disposition home or self-care (01) ==
LOC: RAD 09:25
PROVIDERS: PCP Nurse Practitioner Family; Visit Provider Nurse Practitioner Family
DX: R10.30 Lower abdominal pain, unspecified (principal); D50.9 Iron deficiency anemia, unspecified; M54.50 Low back pain, unspecified; N93.9 Abnormal uterine and vaginal bleeding, unspecified; R11.0 Nausea
CPT/HCPCS: 74177

== ENCOUNTER → 2024-01-10 11:34 | Outpatient (BNVA) | payer MEDICAID, SELFPAY | PROVIDERS: PCP Nurse Practitioner Family; Visit Provider Nurse Practitioner Family | DX: Z72.51 High risk heterosexual behavior (principal); R10.9 Unspecified abdominal pain; R19.8 Other specified symptoms and signs involving the digestive system and abdomen | CPT/HCPCS: 83540; 87491; 87591 ==

== ENCOUNTER 2024-01-12 11:16 | Emergency (ER) | payer MEDICAID, SELFPAY ==
--- NOTE | 2024-01-12 11:21 | XR_ITS ---
WS: [id number] XR foot LT min 3V* [id number] REASON FOR EXAM: injury FINDINGS: No acute fracture identified. The joint spaces of the forefoot, midfoot, and hindfoot are intact and well preserved. The subtalar joint is intact and well preserved. No soft tissue abnormality. XR/XR foot LT min 3V* [id number] IMPRESSION: No acute abnormality.
--- NOTE | 2024-01-12 11:29 | XR_ITS ---
WS: [id number] XR ankle LT min 3V* [id number] REASON FOR EXAM: LEFT FOOT INJRY FINDINGS: Bony fragment (s) adjacent to the apex of the lateral malleolus associated with significant soft tiss ue swelling over the lateral malleolus. Presumed acute avulsion fracture. The joint spaces of the ankle are intact and well preserved. XR/XR ankle LT min 3V* [id number] IMPRESSION: Acute avulsion fracture apex of the lateral malleolus.
[2024-01-12 11:30] VITALS: BP 157/116; PULSE 106; RESP 20; TEMP 36.7; O2SAT 97; BMI 44.4
--- NOTE | 2024-01-12 11:59 | ED_ITS ---
HPI - Extremity Problem General: Chief complaint: Extremity Injury, Lower Stated complaint: lt foot inj Time Seen by Provider: 01/12/24 11:54 History of Present Illness: 23-year-old female who presents emergenc y room with a left ankle injury. She has pain in her left lateral malleolus after stepping funny on the stair and twisting it. No obvious deformity. There is some swelling. No redness. She is neurovascularly intact. No other injuries. Related Data Previous Rx's Medication Instructions Recorded ibuprofen 800 mg tablet 800 mg PO TID PRN pain #30 tabs 10/06/23 buspirone 10 mg tablet 10 mg PO BID PRN anxiety #60 tabs 11/04/23 Xulane 150 mcg-35 mcg/24 hr 1 patch transdermal Q7D #3 ea 12/13/23 transdermal patch (norelgestromin-ethin.estradiol) folic acid 1 mg tablet 1 mg PO DAILY #30 tabs 01/03/24 methotrexate sodium 2.5 mg tablet See Rx Instructions PO .week 01/03/24 Rheumatoid Arthritis #120 tabs prednisone 20 mg tablet See Rx Instructions PO .COMPLEX 01/03/24 PRN joint pain flare #30 tabs ferrous gluconate 324 mg (38 mg 324 mg PO BID 30 days #60 tabs 01/11/24 iron) tablet diclofenac sodium 50 mg 50 mg PO BID PRN pain #14 tabs 01/12/24 tablet,delayed release Allergies Allergy/AdvReac Type Severity Reaction Status Date / Time No Known Allergies Allergy Verified 01/10/24 09:24 Review of Systems Narrative: Constitutional symptoms: Negative except as documented in HPI. Skin symptoms: Negative except as documented in HPI. Eye symptoms: Negative except as documented in HPI. ENMT symptoms: Negative except as documented in HPI. Respiratory symptoms: Negative except as documented in HPI. Cardiovascular symptoms: Negative except as documented in HPI. Gastrointestinal symptoms: Negative except as documented in HPI. Genitourinary symptoms: Negative except as documented in HPI. Musculoskeletal symptoms: Negative except as documented in HPI. Neurologic symptoms: Negative except as documented in HPI. Psychiatric symptoms: Negative except as documented in HPI. Endocrine symptoms: Negative except as documented in HPI. PFS ED PFSH: Medical History Family planning counseling Degenerative joint disease (DJD) of lumbar spine Immunization counseling High risk medication use Seronegative rheumatoid arthritis of both hands History of oligohydramnios in prior , currently No pertinent past medical history neghx: htn,dm,thyroid,dvt/pe PCP: Jackbenjamin Boogie Generalized anxiety disorder Chronic migraine Back pain Surgical History No history of previous surgery Family History Family/Other No problems noted. Grandmother Diabetes MGM, PGM Breast cancer MGM diagnosed at 77 y/o Denies family history of Colon cancer Ovarian cancer Heart disease Hypercholesteremia Hyperlipidemia Hypertension Uterine cancer Thyroid disease Stroke Social History Smoking and tobacco/nicotine status: never used tobacco/nicotine Alcohol intake: never Substance/Drug Use: never Do you think of yourself as: Straight/Heterosexual Physical Exam Narrative: EXAM NARRATIVE: General: Alert, no acute distress. Skin: warm and dry Head: Normocephalic Neck: Trachea midline Eye: Extraocular movements are intact. Ears, nose, mouth and throat: Oral mucosa moist Respiratory: Respirations are non-labored Musculoskeletal: Some swelling in the left lateral malleolus. No bruising. Neurovascular intact. No obvious deformities. Neurological: Alert and oriented, No focal neurological deficit observed. Psychiatric: Cooperative, appropriate mood & affect. Course Vital Signs: Vital signs: Vital Signs Temperature 98.1 F 01/12/24 11:30 Pulse Rate 106 H 01/12/24 11:30 Respiratory Rate 20 H 01/12/24 11:30 Blood Pressure 157/116 01/12/24 11:30 Pulse Oximetry 97 01/12/24 11:30 Oxygen Delivery Me thod Room Air 01/12/24 11:30 MDM - Extremity (Nontraumatic) Medical Decision Making X-ray of the left foot: No abnormalities. This was reviewed and interpreted by myself the emergency room physician. I also reviewed the radiology report. X-ray of the left ankle: Distal lateral avulsion fracture. This was reviewed and interpreted by myself the emergency room physician. I also reviewed the radiology report. Assessment and plan: Ankle fracture ?Splint placed by nursing. Patient is neurovascularly intact. I examined personally. - Discharged home - Discussed plan with patient. Answered any questions. - Evaluation and treatment of this problem were appropriate in the emergency setting. Lab Data Radiology Impressions Foot X-Ray 01/12/24 11:21 IMPRESSION: No acute abnormality. Ankle X-Ray 01/12/24 11:29 IMPRESSION: Acute avulsion fracture apex of the lateral malleolus. All radiology interpretation(s) finalized by discharge Discharge Plan Discharge Patient Disposition: Home Clinical Impression: Ankle fracture Condition: Stable Prescriptions: New diclofenac sodium 50 mg tablet,delayed release (DR/EC) 50 mg PO BID PRN (Reason: pain) Qty: 14 0RF No Action prednisone 20 mg tablet See Rx Instructions PO .COMPLEX PRN (Reason: joint pain flare) Qty: 30 1RF Rx Instructions: take 1 or 2 tab daily for up to 7 days as needed for arthritis flare PO PRN; methotrexate sodium 2.5 mg tablet See Rx Instructions PO .week Qty: 120 0RF Rx Instructions: Split dose.. take 4 tabs in the AM and 4 tabs in the PM on the same day once a week folic acid 1 mg tablet 1 mg PO DAILY Qty: 30 5RF buspirone 10 mg tablet 10 mg PO BID PRN (Reason: anxiety) Qty: 60 5RF ibuprofen 800 mg tablet 800 mg PO TID PRN (Reason: pain) Qty: 30 2RF Xulane 150-35 mcg/24 hr patch weekly 1 patch transdermal Q7D Qty: 3 12RF Rx Instructions: apply once weekly for 3 weeks of a 4-week cycle ferrous gluconate 324 mg (38 mg iron) tablet 324 mg PO BID 30 Days Qty: 60 2RF Discharge Orders: Discharge ED (Routine); Ordered 01/12/24 Ordered By: Inna Medina Referrals: Veronica Hall MD [Physician] - 4-7 days (Please call for an appointment) Thelma Parisi FNP-C [Primary Care Provider] - Discharge Diet: Usual diet Discharge Activity: Limit activity as instructed Patient Instructions: Crutch Instructions (ED), Splint Care (ED), Opioid Safety, Pain Management Activity Restrictions/Additional Instructions: Thank you for choosing [facility] for your healthcare needs today. Please realize this is an emergency room and that we are providing you with a medical screening exam and this may not be complete and all inclusive of all the testing and or work up that you may need to determine your ailment or severity of your illness. You have been screened and evaluated and felt safe for discharge. Health conditions do change or evolve sometimes and as such it is important that you follow up with your Primary Doctor to be re checked, 3-5 days is a general good time frame for follow up. You are always welcome to return to the ED for re assessment if your symptoms are worsening or you have new concerns Coding Level of Care Code ED [employer] Operator for Teresa Suarez
[2024-01-12] MEDS: HYDROcodone-acetaminophen 5-325 mg Tablet 1 TAB PO (12:15)
[2024-01-12 13:16] VITALS: BP 142/98; PULSE 89; O2SAT 98
== END 2024-01-12 13:17 | disposition home or self-care (01) ==
PROVIDERS: Emergency Provider Emergency Medicine; PCP Nurse Practitioner Family
DX: S82.892A Other fracture of left lower leg, initial encounter for closed fracture (principal); X58.XXXA Exposure to other specified factors, initial encounter
CPT/HCPCS: 29515; 73610; 73630; 99283; E0114

== ENCOUNTER → 2024-02-07 14:26 | Outpatient (BNVA) | payer MEDICAID, SELFPAY | PROVIDERS: PCP Nurse Practitioner Family; Visit Provider Podiatrist Foot & Ankle Surgery | DX: S82.832A Other fracture of upper and lower end of left fibula, initial encounter for closed fracture (principal); X58.XXXA Exposure to other specified factors, initial encounter | CPT/HCPCS: 73610; 73620 ==

== ENCOUNTER → 2024-02-21 10:57 | Outpatient (BNVA) | payer MEDICAID, SELFPAY | PROVIDERS: PCP Nurse Practitioner Family; Visit Provider Internal Medicine Rheumatology | DX: Z79.899 Other long term (current) drug therapy (principal); M06.00 Rheumatoid arthritis without rheumatoid factor, unspecified site; M45.6 Ankylosing spondylitis lumbar region; Z11.59 Encounter for screening for other viral diseases; Z11.1 Encounter for screening for respiratory tuberculosis | CPT/HCPCS: 80076; 82565; 83520; 85025; 85651; 86140; 86480; 86704; 86803; 86812; 87340 ==

== ENCOUNTER → 2024-02-22 14:11 | Outpatient (BNVA) | payer MEDICAID, SELFPAY | PROVIDERS: PCP Nurse Practitioner Family; Visit Provider Podiatrist Foot & Ankle Surgery | DX: S82.832A Other fracture of upper and lower end of left fibula, initial encounter for closed fracture (principal); X58.XXXA Exposure to other specified factors, initial encounter | CPT/HCPCS: 73610 ==

== ENCOUNTER → 2024-03-30 10:13 | Outpatient (BNVA) | payer MEDICAID, SELFPAY | PROVIDERS: PCP Nurse Practitioner Family; Visit Provider Nurse Practitioner Family | DX: R05.9 Cough, unspecified (principal); B34.9 Viral infection, unspecified | CPT/HCPCS: 87400 ==

== ENCOUNTER → 2024-06-16 12:26 | Outpatient (BNVA) | payer MEDICAID, SELFPAY | PROVIDERS: PCP Nurse Practitioner Family; Visit Provider Nurse Practitioner Family | DX: R39.9 Unspecified symptoms and signs involving the genitourinary system (principal) | CPT/HCPCS: 81000 ==

== ENCOUNTER 2024-06-19 09:52 | Outpatient (CLI) | payer MEDICAID, SELFPAY ==
--- NOTE | 2024-06-19 10:02 | XRR_ITS ---
PROCEDURE INFORMATION: Exam: XR Lumbosacral Spine Exam date and time: 06/19/2024 10:07 AM Age: 24 years old Clinical indication: Pain and injury or trauma; Blunt trauma (contusions or hematomas); Low back pain; PT states she thinks she has a kidney stone. HX of stones. PT also states she had a fall on Wednesday that caused pain in the lower back. ; Additional info: M54.50 - low back pain, unspecified TECHNIQUE: Imaging protocol: Radiologic exam of the lumbosacral spine. Views: 2 or 3 views. COMPARISON: CR XR lumbar spine 2-3V* [id number] 04/14/2023 9:42 AM FINDINGS: Bones/joints: Normal. No acute fracture. Normal alignment. Soft tissues: Unremarkable. XR/XR lumbar spine 2-3V* [id number] IMPRESSION: No acute findings.
--- NOTE | 2024-06-19 10:02 | XRR_ITS ---
PROCEDURE INFORMATION: Exam: XR Abdomen Exam date and time: 06/19/2024 10:07 AM Age: 24 years old Clinical indication: Abdominal pain; Generalized; PT states she thinks she has a kidney stone. HX of stones. PT also states she had a fall on Wednesday that caused pain in the lower back. ; Additional info: R10.9 - unspecified abdominal pain TECHNIQUE: Imaging protocol: Radiologic exam of the abdomen. Views: Frontal supine view of the abdomen. 1 View. COMPARISON: CT abdomen pelvis w con* [id number] 12/13/2023 10:55 AM FINDINGS: Gastrointestinal tract: No ileus or obstruction. No abnormal intra-abdominal masses or calcifications. Bones/joints: Unremarkable. XR/XR KUB [id number] IMPRESSION: No acute findings.
== END 2024-06-19 09:53 | disposition home or self-care (01) ==
LOC: RAD 09:55
PROVIDERS: PCP Nurse Practitioner Family; Visit Provider Nurse Practitioner Family
DX: R10.9 Unspecified abdominal pain (principal); M54.50 Low back pain, unspecified; W19.XXXA Unspecified fall, initial encounter
CPT/HCPCS: 72100; 74018

== ENCOUNTER → 2024-06-21 12:34 | Outpatient (BNVA) | payer MEDICAID, SELFPAY | PROVIDERS: PCP Nurse Practitioner Family; Visit Provider Nurse Practitioner Family | DX: N39.0 Urinary tract infection, site not specified (principal) | CPT/HCPCS: 87086 ==

== ENCOUNTER → 2024-08-28 10:28 | Outpatient (BNVA) | payer MEDICAID, SELFPAY | PROVIDERS: PCP Nurse Practitioner Family; Visit Provider Internal Medicine Rheumatology | DX: Z79.899 Other long term (current) drug therapy (principal) | CPT/HCPCS: 36415; 80076; 82306; 82565; 84439; 84443; 85025; 85651; 86140; 86480 ==

== ENCOUNTER → 2024-09-25 15:44 | Outpatient (BNVA) | payer MEDICAID, SELFPAY | PROVIDERS: PCP Nurse Practitioner Family; Visit Provider Obstetrics & Gynecology | DX: Z12.4 Encounter for screening for malignant neoplasm of cervix (principal) | CPT/HCPCS: 88175 ==

== ENCOUNTER → 2024-11-29 10:08 | Outpatient (BNVA) | payer MEDICAID, SELFPAY | PROVIDERS: PCP Nurse Practitioner Family; Visit Provider Internal Medicine Rheumatology | DX: Z79.899 Other long term (current) drug therapy (principal) | CPT/HCPCS: 80076; 82565; 85025; 85651; 86140 ==

== ENCOUNTER → 2025-01-23 10:54 | Outpatient (BNVA) | payer MEDICAID, SELFPAY | PROVIDERS: PCP Nurse Practitioner Family; Referring Provider Internal Medicine Rheumatology; Visit Provider Anesthesiology Pain Medicine | DX: M16.9 Osteoarthritis of hip, unspecified (principal) | CPT/HCPCS: 73521 ==

== ENCOUNTER 2025-02-09 11:37 | Outpatient (CLI) | payer MEDICAID, SELFPAY ==
--- NOTE | 2025-02-09 11:45 | MR_ITS ---
WS: [id number] MRI LUMBAR SPINE NONCONTRAST HISTORY: Low back pain for 1 year. COMPARISON: None available. TECHNIQUE: Sagittal and axial multisequence imaging is submitted. Small central disc protrusion at C5-6. Normal lumbar alignment with no compression fractures or marrow edema. Disc spaces and vertebral body heights are well-preserved. Conus terminates normally at L1. Mild disc bulging at T11-12 with slight encroachment upon the ventral cord but no high-grade stenosis. L1-L2: Normal. L2-L3: Mild bilateral facet joint arthritis. No stenosis. L3-L4: Mild annular disc bulging with ligamentum flavum and facet arthritis. L4-L5: Mild annular disc bulging with ligamentum flavum and facet arthritis. Very mild encroachment upon the subarticular recesses. Mild bilateral foraminal stenosis. L5-S1: Mild annular disc bulging. Mild ligamentum flavum and facet arthritis. Very mild foraminal stenosis, RIGHT greater than LEFT. Paravertebral soft tissues are negative. MR/MR lumbar spine wo con* [id number] IMPRESSION: 1. No high-grade central or foraminal stenosis. 2. Mild bilateral foraminal stenosis at L4-5 and L5-S1. 3. Mild facet joint arthropathy from L2-3 to L5-S1. 4. Mild disc encroachment upon the subarticular recesses at L4-5. No significa nt stenosis.
== END 2025-02-09 11:38 | disposition home or self-care (01) ==
PROVIDERS: PCP Nurse Practitioner Family; Visit Provider Anesthesiology Pain Medicine
DX: M54.16 Radiculopathy, lumbar region (principal); M51.370 Other intervertebral disc degeneration, lumbosacral region with discogenic back pain only; M47.897 Other spondylosis, lumbosacral region; M48.07 Spinal stenosis, lumbosacral region
CPT/HCPCS: 72148